=== PATIENT | female | born 1945 | race Caucasian/White ===

== ENCOUNTER → 2018-02-08 | Outpatient (CLI) | payer MEDICARE ==
[~2018-02-08] MED LIST: ACET500 PO; ALBU90OI61 INH; AMLO10 PO; AMLO5 PO; CEPH500 PO; CHOL10002 PO; CYCL10 PO; Cyclobenzaprine5 MG PO; DICL75ER PO; DIVA250EC PO; DOCU100 PO; ESTR1 PO; ESTR2 PO; FISH1000 PO; GUAI600T33 PO; LAMO100 PO; LORA1 PO; LORA2 PO; METO25 PO; METO25ER PO; MINO100 PO; MULVITMIND PO; Mobic7.5 MG PO; NAPR500 PO; Naproxen250 MG PO; Norco 5-325 Ta1 EACH PO; OLAN10 PO; OLAN20 MM; OLAN20 PO; OLAN5 PO; OLAN5A PO; OMEP20ER PO; OMEPRAZOLE MAGN20 MG PO; OXYB5 PO; OXYC5 PO; Prilosec20 MG PO; QUET25 PO; RXCYCL10 PO; RXLORA1 PO; VITAMIN B122500 MCG PO; ZOLP10 PO
[2018-02-08 13:59] LABS: Source, Urine Clean Catch
[2018-02-08 15:11] LABS: Bilirubin, Urine Neg (Neg); Blood, Urine 2+ (Neg); Glucose Qualitative, Urine Neg (Neg); Ketones, Urine Neg (Neg); Leukocyte Esterase, Urine 3+ (Neg); Nitrite, Urine Neg (Neg); Protein, Urine Neg (Neg); Specific Gravity, Urine 1.005 (1.003-1.022); Urobilinogen, Urine NORM (Normal)
[2018-02-08 15:27] LABS: Appearance, Urine Hazy (Clear); Color, Urine Pale Yellow (P-Yellow)
[2018-02-08 15:28] LABS: White Blood Cells, Urine TNTC /hpf (0-5)
[2018-02-08 15:29] LABS: Bacteria Few /hpf; Squamous Epithelial Cells Few /hpf (Few); Transitional Epithelial Cells Few /hpf (0-Rare)
== END | disposition home or self-care (01) ==
LOC: LAB 13:58 → LAB SHORT 13:58 → LAB FUT 02-08 11:25 → EDSTATUS 02-08 11:25
PROVIDERS: Internal Medicine
DX: R30.0 Dysuria (principal)
CPT/HCPCS: 81001; 87077; 87086; 87186

== ENCOUNTER 2018-03-30 20:12 | Emergency (ER) | payer MEDICARE ==
[~2018-03-30] VITALS: Ht 170.2 cm; Wt 87.5 kg
[2018-03-30 20:41] LABS: BASOPHILS PERCENT AUTO 0 % (0-2); EOSINOPHILS ABSOLUTE AUTO 0.01 K/mm3 (0.00-0.68); EOSINOPHILS PERCENT AUTO 0 % (0-6); Hematocrit 39.2 % (33.0-51.0); Hemoglobin 14.3 g/dL (11.5-16.0); IMMATURE GRAN ABSOLUTE AUTO 0.02 K/mm3 (0.00-0.10); IMMATURE GRAN PERCENT AUTO 0 % (0-1); LYMPHOCYTES ABSOLUTE AUTO 1.71 K/mm3 (0.84-5.20); LYMPHOCYTES PERCENT AUTO 19 % (21-46); MONOCYTES ABSOLUTE AUTO 0.59 K/mm3 (0.16-1.47); MONOCYTES PERCENT AUTO 7 % (4-13); Mean Corpuscular HGB 32.7 pg (26.0-34.0); Mean Corpuscular HGB Conc 36.5 g/dL (31.5-36.5); Mean Corpuscular Volume 90 fL (80-100); Mean Platelet Volume 9.1 fL (9.1-12.4); NEUTROPHILS ABSOLUTE AUTO 6.48 K/mm3 (1.96-9.15); NEUTROPHILS PERCENT AUTO 74 % (41-73); Platelet Count 293 K/mm3 (150-400); RDW Coefficient Variation 11.7 % (11.7-14.2); RDW Standard Deviation 38.2 fL (35.1-46.3); Red Blood Cell Count 4.37 M/mm3 (3.80-5.20); White Blood Cell Count 8.81 K/mm3 (4.00-11.30)
[2018-03-30 20:58] LABS: Alanine Aminotransfer (ALT/SGP 25 U/L (12-78); Albumin, Blood 4.2 g/dL (3.4-5.0); Alk Phos 71 U/L (50-136); Anion Gap 11 mmol/L (6-16); Aspartate Aminotrans (AST/SGOT 17 U/L (12-37); Bilirubin, Total 0.5 mg/dL (0.1-1.0); Blood Urea Nitrogen 2 mg/dL (8-24); Bun/Creatinine Ratio 4.1 (12.0-20.0); CO2, Blood 24 mmol/L (21-32); Calcium, Blood 9.2 mg/dL (8.5-10.1); Chloride, Blood 99 mmol/L (98-108); Creatinine, Blood 0.48 mg/dL (0.40-1.00); Globulin, Blood 4.2 g/dL (2.2-4.0); Glomerular Filtration Rate >60 (60-); Glucose, Blood 108 mg/dL (70-99); Potassium, Blood 3.6 mmol/L (3.5-5.5); Sodium, Blood 134 mmol/L (136-145); Total Protein, Blood 8.4 g/dL (6.4-8.2)
[2018-03-30 22:09] LABS: Source, Urine Clean Catch
[2018-03-30 22:12] LABS: Bilirubin, Urine Neg (Neg); Blood, Urine 1+ (Neg); Glucose Qualitative, Urine Neg (Neg); Ketones, Urine Neg (Neg); Leukocyte Esterase, Urine 3+ (Neg); Nitrite, Urine Neg (Neg); Protein, Urine Neg (Neg); Specific Gravity, Urine 1.005 (1.003-1.022); Urobilinogen, Urine NORM (Normal)
[2018-03-30 22:14] LABS: Appearance, Urine Clear (Clear); Color, Urine Yellow (P-Yellow)
[2018-03-30 22:24] LABS: Bacteria Few /hpf; Red Blood Cells, Urine Rare /hpf (0-2); Squamous Epithelial Cells Few /hpf (Few); White Blood Cells, Urine 50-100 /hpf (0-5)
[2018-03-30] MEDS ORDERED: CEPH500 PO (22:45)
== END 2018-03-31 00:01 | disposition home or self-care (01) ==
LOC: ER 20:12
PROVIDERS: Physician Assistant
DX: N39.0 Urinary tract infection, site not specified (principal); Z88.8 Allergy status to other drugs, medicaments and biological substances; Z79.899 Other long term (current) drug therapy; F31.9 Bipolar disorder, unspecified; I10 Essential (primary) hypertension; Z87.891 Personal history of nicotine dependence
CPT/HCPCS: 80053; 81001; 83690; 85025; 87086; 96361; 96374; 99283; J0696; J7030

== ENCOUNTER → 2018-04-07 | Outpatient (CLI) | payer MEDICARE ==
[2018-04-07 14:44] LABS: Source, Urine Clean Catch
[2018-04-07 15:26] LABS: Bilirubin, Urine Neg (Neg); Blood, Urine 1+ (Neg); Glucose Qualitative, Urine Neg (Neg); Ketones, Urine Neg (Neg); Leukocyte Esterase, Urine Neg (Neg); Nitrite, Urine Neg (Neg); Protein, Urine Neg (Neg); Specific Gravity, Urine 1.005 (1.003-1.022); Urobilinogen, Urine NORM (Normal)
[2018-04-07 15:45] LABS: Appearance, Urine Clear (Clear); Color, Urine Yellow (P-Yellow)
[2018-04-07 15:46] LABS: Bacteria Rare /hpf; Red Blood Cells, Urine 0-2 /hpf (0-2); Squamous Epithelial Cells Mod /hpf (Few); White Blood Cells, Urine 0-2 /hpf (0-5)
== END | disposition home or self-care (01) ==
LOC: LAB SHORT 14:40 → LAB 14:40
PROVIDERS: Internal Medicine
DX: R30.0 Dysuria (principal)
CPT/HCPCS: 81001

== ENCOUNTER 2018-05-17 06:28 | Day surgery (SDC) | payer MEDICARE ==
[~2018-05-17] VITALS: Ht 170.2 cm; Wt 87.3 kg
== END 2018-05-17 09:25 | disposition home or self-care (01) ==
LOC: ORSCSDS 06:28
PROVIDERS: Surgery
PROC: 0DJD8ZZ Inspection of Lower Intestinal Tract, Via Natural or Artificial Opening Endoscopic (ICD-10-PCS; principal; 2018-05-17 08:00)
DX: Z12.11 Encounter for screening for malignant neoplasm of colon (principal); I10 Essential (primary) hypertension; G47.33 Obstructive sleep apnea (adult) (pediatric); J45.909 Unspecified asthma, uncomplicated; K21.9 Gastro-esophageal reflux disease without esophagitis; Z79.899 Other long term (current) drug therapy; F17.210 Nicotine dependence, cigarettes, uncomplicated
CPT/HCPCS: J0330; J1980; J2250; J2405; J7120

== ENCOUNTER 2018-06-07 06:42 | Emergency (ER) | payer MEDICARE ==
[~2018-06-07] VITALS: Ht 170.2 cm; Wt 88.5 kg
[2018-06-07] MEDS ORDERED: ZYPREXA (06:53)
[2018-06-07] MEDS ORDERED: NORVASC (06:53)
[2018-06-07] MEDS ORDERED: DEPAKOTE (06:53)
[2018-06-07] MEDS ORDERED: Omeprazole20 M1 (06:54)
[2018-06-07] MEDS ORDERED: METOPROLOL (06:54)
[2018-06-07] MEDS ORDERED: LORAZEPAM (06:54)
[2018-06-07] MEDS ORDERED: OXYB5 PO (06:55)
[2018-06-07] MEDS ORDERED: MELO7.5 (06:56)
[2018-06-07 07:11] LABS: BASOPHILS PERCENT AUTO 0 % (0-2); EOSINOPHILS ABSOLUTE AUTO 0.02 K/mm3 (0.00-0.68); EOSINOPHILS PERCENT AUTO 0 % (0-6); Hematocrit 33.8 % (33.0-51.0); Hemoglobin 12.1 g/dL (11.5-16.0); IMMATURE GRAN ABSOLUTE AUTO 0.01 K/mm3 (0.00-0.10); IMMATURE GRAN PERCENT AUTO 0 % (0-1); LYMPHOCYTES ABSOLUTE AUTO 1.52 K/mm3 (0.84-5.20); LYMPHOCYTES PERCENT AUTO 25 % (21-46); MONOCYTES ABSOLUTE AUTO 0.59 K/mm3 (0.16-1.47); MONOCYTES PERCENT AUTO 10 % (4-13); Mean Corpuscular HGB 33.1 pg (26.0-34.0); Mean Corpuscular HGB Conc 35.8 g/dL (31.5-36.5); Mean Corpuscular Volume 92 fL (80-100); Mean Platelet Volume 8.6 fL (9.1-12.4); NEUTROPHILS ABSOLUTE AUTO 4.03 K/mm3 (1.96-9.15); NEUTROPHILS PERCENT AUTO 65 % (41-73); Platelet Count 256 K/mm3 (150-400); RDW Coefficient Variation 11.8 % (11.7-14.2); RDW Standard Deviation 39.9 fL (35.1-46.3); Red Blood Cell Count 3.66 M/mm3 (3.80-5.20); White Blood Cell Count 6.17 K/mm3 (4.00-11.30)
[2018-06-07 07:19] LABS: Alanine Aminotransfer (ALT/SGP 23 U/L (12-78); Albumin, Blood 3.2 g/dL (3.4-5.0); Albumin/Globulin Ratio 0.8 (0.8-1.8); Alk Phos 68 U/L (50-136); Anion Gap 10 mmol/L (6-16); Aspartate Aminotrans (AST/SGOT 33 U/L (12-37); Bilirubin, Total 0.8 mg/dL (0.1-1.0); Blood Urea Nitrogen 6 mg/dL (8-24); Bun/Creatinine Ratio 11.4 (12.0-20.0); CO2, Blood 24 mmol/L (21-32); Calcium, Blood 8.4 mg/dL (8.5-10.1); Chloride, Blood 93 mmol/L (98-108); Creatinine, Blood 0.53 mg/dL (0.40-1.00); Globulin, Blood 3.9 g/dL (2.2-4.0); Glomerular Filtration Rate >60 (60-); Glucose, Blood 124 mg/dL (70-99); Potassium, Blood 3.5 mmol/L (3.5-5.5); Sodium, Blood 127 mmol/L (136-145); Total Protein, Blood 7.1 g/dL (6.4-8.2); Troponin I <0.015 ng/mL (0.000-0.040)
[2018-06-07 08:30] LABS: Source, Urine Clean Catch
[2018-06-07 08:54] LABS: Bilirubin, Urine Neg (Neg); Blood, Urine 1+ (Neg); Glucose Qualitative, Urine Neg (Neg); Ketones, Urine 1+ (Neg); Leukocyte Esterase, Urine 2+ (Neg); Nitrite, Urine Neg (Neg); Protein, Urine 1+ (Neg); Urobilinogen, Urine NORM (Normal); pH, Urine 6.5 (5.0-8.0)
[2018-06-07 09:28] LABS: Appearance, Urine Hazy (Clear); Color, Urine Yellow (P-Yellow)
[2018-06-07 09:29] LABS: Red Blood Cells, Urine 0-2 /hpf (0-2); Squamous Epithelial Cells Few /hpf (Few)
[2018-06-07 09:30] LABS: Bacteria Few /hpf; Mucus Mod (0-Heavy)
[2018-06-07 09:35] LABS: U Amphetamine Screen Not Detected; U Barbituate Screen Not Detected; U Benzodiazapine Screen DETECTED; U Buprenorphine Screen Not Detected; U Cannabinoids Screen Not Detected; U Cocaine Screen Not Detected; U Methadone Screen Not Detected; U Methamphetamine Screen Not Detected; U Opiates Screen Not Detected; U Oxycodone Screen Not Detected; U Phencyclidine Screen Not Detected
[2018-06-07 09:36] LABS: U Propoxyphene Screen Not Detected
[2018-06-07] MEDS ORDERED: Macrobid 100 M100 MG PO (09:46)
== END 2018-06-07 11:03 | disposition home or self-care (01) ==
LOC: ER 06:42
PROVIDERS: Emergency Medicine
DX: R55 Syncope and collapse (principal); N39.0 Urinary tract infection, site not specified; E87.1 Hypo-osmolality and hyponatremia; R40.0 Somnolence; F31.9 Bipolar disorder, unspecified; I10 Essential (primary) hypertension; Z88.8 Allergy status to other drugs, medicaments and biological substances; Z79.899 Other long term (current) drug therapy; Z87.891 Personal history of nicotine dependence; W19.XXXA Unspecified fall, initial encounter; Y92.000 Kitchen of unspecified non-institutional (private) residence as the place of occurrence of the external cause
CPT/HCPCS: 70450; 71046; 80053; 81001; 84484; 85025; 93005; 93010; 99285-25; P9612

== ENCOUNTER 2018-10-22 18:10 | Observation (INO) | payer MEDICARE ==
[~2018-10-22] VITALS: Ht 170.2 cm; Wt 95.2 kg
[~2018-10-22 18:10] MED LIST changes: +DEPAKOTE; +LORAZEPAM; +MELO7.5; +METOPROLOL; +Macrobid 100 M100 MG PO; +NORVASC; +Omeprazole20 M1; +ZYPREXA
[2018-10-22 19:20] LABS: BASOPHILS ABSOLUTE AUTO 0.01 K/mm3 (0.00-0.23); BASOPHILS PERCENT AUTO 0 % (0-2); EOSINOPHILS ABSOLUTE AUTO 0.01 K/mm3 (0.00-0.68); EOSINOPHILS PERCENT AUTO 0 % (0-6); Hematocrit 35.9 % (33.0-51.0); IMMATURE GRAN ABSOLUTE AUTO 0.01 K/mm3 (0.00-0.10); IMMATURE GRAN PERCENT AUTO 0 % (0-1); LYMPHOCYTES ABSOLUTE AUTO 1.67 K/mm3 (0.84-5.20); LYMPHOCYTES PERCENT AUTO 22 % (21-46); MONOCYTES ABSOLUTE AUTO 0.47 K/mm3 (0.16-1.47); MONOCYTES PERCENT AUTO 6 % (4-13); Mean Corpuscular HGB 33.5 pg (26.0-34.0); Mean Corpuscular HGB Conc 36.2 g/dL (31.5-36.5); Mean Corpuscular Volume 93 fL (80-100); Mean Platelet Volume 8.7 fL (9.1-12.4); NEUTROPHILS ABSOLUTE AUTO 5.55 K/mm3 (1.96-9.15); NEUTROPHILS PERCENT AUTO 72 % (41-73); Platelet Count 243 K/mm3 (150-400); RDW Coefficient Variation 11.5 % (11.7-14.2); Red Blood Cell Count 3.88 M/mm3 (3.80-5.20); White Blood Cell Count 7.72 K/mm3 (4.00-11.30)
[2018-10-22 19:36] LABS: Alanine Aminotransfer (ALT/SGP 26 U/L (12-78); Albumin, Blood 3.9 g/dL (3.4-5.0); Albumin/Globulin Ratio 0.9 (0.8-1.8); Alk Phos 71 U/L (50-136); Anion Gap 9 mmol/L (6-16); Aspartate Aminotrans (AST/SGOT 17 U/L (12-37); Blood Urea Nitrogen 9 mg/dL (8-24); Bun/Creatinine Ratio 15.7 (12.0-20.0); CO2, Blood 25 mmol/L (21-32); Calcium, Blood 8.9 mg/dL (8.5-10.1); Chloride, Blood 93 mmol/L (98-108); Creatinine, Blood 0.57 mg/dL (0.40-1.00); Globulin, Blood 4.2 g/dL (2.2-4.0); Glomerular Filtration Rate >60 (60-); Glucose, Blood 93 mg/dL (70-99); Potassium, Blood 3.4 mmol/L (3.5-5.5); Sodium, Blood 127 mmol/L (136-145); Total Protein, Blood 8.1 g/dL (6.4-8.2)
[2018-10-22 20:53] LABS: Source, Urine Clean Catch
[2018-10-22 20:59] LABS: Appearance, Urine Clear (Clear); Bilirubin, Urine Neg (Neg); Blood, Urine Neg (Neg); Color, Urine Yellow (P-Yellow); Glucose Qualitative, Urine Neg (Neg); Ketones, Urine 1+ (Neg); Leukocyte Esterase, Urine Neg (Neg); Nitrite, Urine Neg (Neg); Protein, Urine Neg (Neg); Specific Gravity, Urine 1.005 (1.003-1.022); Urobilinogen, Urine NORM (Normal); pH, Urine 6.5 (5.0-8.0)
[2018-10-22 21:04] LABS: Troponin I <0.015 ng/mL (0.000-0.040); Valproic Acid 54.1 ug/mL (50.0-100.0)
[2018-10-22] MEDS ORDERED: ALBU90OI INH (21:56)
== END 2018-10-23 15:10 | disposition home or self-care (01) ==
LOC: ER 18:10 → EOR 21:53
PROVIDERS: Emergency Medicine; ADMIT Emergency Medicine
DX: F31.9 Bipolar disorder, unspecified (principal); F23 Brief psychotic disorder; I10 Essential (primary) hypertension; M54.9 Dorsalgia, unspecified; G89.29 Other chronic pain; Z88.8 Allergy status to other drugs, medicaments and biological substances; Z79.899 Other long term (current) drug therapy; Z87.891 Personal history of nicotine dependence; Z91.14 Patient's other noncompliance with medication regimen
CPT/HCPCS: 36415; 70450; 71045; 80053; 80164; 81003; 84484; 85025; 93005; 93010; 99285-25; G0378; P9612; Q3014

== ENCOUNTER → 2018-12-14 | Outpatient (CLI) | payer MEDICARE ==
[~2018-12-14] MED LIST changes: +ALBU90OI INH
[2018-12-14 11:02] LABS: Source, Urine Clean Catch
[2018-12-14 14:10] LABS: Bilirubin, Urine Neg (Neg); Blood, Urine Neg (Neg); Glucose Qualitative, Urine Neg (Neg); Ketones, Urine Neg (Neg); Leukocyte Esterase, Urine Neg (Neg); Nitrite, Urine Neg (Neg); Protein, Urine Neg (Neg); Specific Gravity, Urine 1.005 (1.003-1.022); Urobilinogen, Urine NORM (Normal)
[2018-12-14 14:25] LABS: Appearance, Urine Clear (Clear); Color, Urine Yellow (P-Yellow)
== END | disposition home or self-care (01) ==
LOC: LAB 10:59 → LAB SHORT 10:59 → LAB FUT 12-13 15:35
PROVIDERS: Internal Medicine
DX: N39.0 Urinary tract infection, site not specified (principal)
CPT/HCPCS: 81003

== ENCOUNTER → 2019-02-21 | Outpatient (CLI) | payer MEDICARE ==
[2019-02-21 14:31] LABS: Source, Urine Clean Catch
[2019-02-21 18:15] LABS: Appearance, Urine Clear (Clear); Bilirubin, Urine Neg (Neg); Blood, Urine Neg (Neg); Glucose Qualitative, Urine Neg (Neg); Ketones, Urine Neg (Neg); Leukocyte Esterase, Urine Neg (Neg); Nitrite, Urine Neg (Neg); Protein, Urine Neg (Neg); Urobilinogen, Urine NORM (Normal)
[2019-02-21 18:27] LABS: Specific Gravity, Urine 1.005 (1.003-1.022)
[2019-02-21 18:28] LABS: Color, Urine Pale Yellow (P-Yellow)
== END | disposition home or self-care (01) ==
LOC: LAB SHORT 14:29 → LAB SRC 14:29 → EDSTATUS 02-21 16:00 → LAB FUT 02-21 16:00
PROVIDERS: Internal Medicine
DX: N39.0 Urinary tract infection, site not specified (principal)
CPT/HCPCS: 81003

== ENCOUNTER → 2019-04-04 | Outpatient (CLI) | payer MEDICARE ==
[2019-04-04 12:50] LABS: Source, Urine Clean Catch
[2019-04-04 15:17] LABS: Bilirubin, Urine Neg (Neg); Blood, Urine 3+ (Neg); Glucose Qualitative, Urine Neg (Neg); Ketones, Urine Neg (Neg); Leukocyte Esterase, Urine 3+ (Neg); Nitrite, Urine Pos (Neg); Protein, Urine 2+ (Neg); Specific Gravity, Urine 1.005 (1.003-1.022); Urobilinogen, Urine NORM (Normal)
[2019-04-04 15:42] LABS: Appearance, Urine Hazy (Clear); Color, Urine Yellow (P-Yellow)
[2019-04-04 15:43] LABS: White Blood Cells, Urine TNTC /hpf (0-5)
[2019-04-04 15:44] LABS: Bacteria Many /hpf; Red Blood Cells, Urine 25-50 /hpf (0-2); Squamous Epithelial Cells Few /hpf (Few)
== END | disposition home or self-care (01) ==
LOC: LAB SRC 12:49 → LAB SHORT 12:49 → LAB FUT 04-02 15:50
PROVIDERS: Internal Medicine
DX: N39.0 Urinary tract infection, site not specified (principal); R32 Unspecified urinary incontinence
CPT/HCPCS: 81001; 87077; 87086; 87186

== ENCOUNTER → 2019-04-18 | Outpatient (CLI) | payer MEDICARE ==
[2019-04-18 13:04] LABS: Source, Urine Clean Catch
[2019-04-18 13:31] LABS: Appearance, Urine Hazy (Clear); Bilirubin, Urine Neg (Neg); Blood, Urine 2+ (Neg); Color, Urine Yellow (P-Yellow); Glucose Qualitative, Urine Neg (Neg); Ketones, Urine Neg (Neg); Leukocyte Esterase, Urine 3+ (Neg); Nitrite, Urine Neg (Neg); Protein, Urine 1+ (Neg); Urobilinogen, Urine NORM (Normal); pH, Urine 6.5 (5.0-8.0)
[2019-04-18 13:53] LABS: White Blood Cells, Urine TNTC /hpf (0-5)
[2019-04-18 13:54] LABS: Bacteria Many /hpf; Squamous Epithelial Cells Few /hpf (Few)
== END | disposition home or self-care (01) ==
LOC: LAB SHORT 13:01 → LAB 13:01 → LAB FUT 04-17 12:00
PROVIDERS: Internal Medicine
DX: N39.0 Urinary tract infection, site not specified (principal)
CPT/HCPCS: 81001; 87077; 87086; 87186

== ENCOUNTER → 2019-05-25 | Outpatient (CLI) | payer MEDICARE ==
[2019-05-25 10:15] LABS: Source, Urine Clean Catch
[2019-05-25 12:41] LABS: Bilirubin, Urine Neg (Neg); Blood, Urine 3+ (Neg); Glucose Qualitative, Urine Neg (Neg); Ketones, Urine Neg (Neg); Leukocyte Esterase, Urine 3+ (Neg); Nitrite, Urine Pos (Neg); Protein, Urine Neg (Neg); Specific Gravity, Urine 1.005 (1.003-1.022); Urobilinogen, Urine NORM (Normal)
[2019-05-25 13:02] LABS: Appearance, Urine Cloudy (Clear); Color, Urine Yellow (P-Yellow)
[2019-05-25 13:16] LABS: Red Blood Cells, Urine 50-100 /hpf (0-2); White Blood Cells, Urine TNTC /hpf (0-5)
[2019-05-25 13:17] LABS: Bacteria Many /hpf; Squamous Epithelial Cells Few /hpf (Few)
== END | disposition home or self-care (01) ==
LOC: LAB 10:15 → LAB SHORT 10:15
PROVIDERS: Internal Medicine
DX: N39.0 Urinary tract infection, site not specified (principal)
CPT/HCPCS: 81001; 87077; 87086; 87186

== ENCOUNTER → 2019-08-11 | Outpatient (CLI) | payer MEDICARE ==
[2019-08-11 14:29] LABS: Source, Urine Clean Catch
[2019-08-11 14:51] LABS: Bilirubin, Urine Neg (Neg); Blood, Urine 1+ (Neg); Glucose Qualitative, Urine Neg (Neg); Ketones, Urine Neg (Neg); Leukocyte Esterase, Urine Neg (Neg); Nitrite, Urine Neg (Neg); Protein, Urine Neg (Neg); Specific Gravity, Urine 1.005 (1.003-1.022); Urobilinogen, Urine NORM (Normal)
[2019-08-11 15:37] LABS: Color, Urine Yellow (P-Yellow)
[2019-08-11 15:38] LABS: Appearance, Urine Clear (Clear)
[2019-08-11 15:39] LABS: Bacteria Rare /hpf; Red Blood Cells, Urine Not Seen /hpf (0-2); Squamous Epithelial Cells Rare /hpf (Few); White Blood Cells, Urine Not Seen /hpf (0-5)
== END | disposition home or self-care (01) ==
LOC: LAB SHORT 14:27 → LAB 14:27 → LAB FUT 08-11 10:50
PROVIDERS: Internal Medicine
DX: N39.0 Urinary tract infection, site not specified (principal)
CPT/HCPCS: 81001

== ENCOUNTER 2019-08-12 17:09 | Emergency (ER) | payer MEDICARE ==
[~2019-08-12] VITALS: Ht 170.2 cm; Wt 82.5 kg
== END 2019-08-12 18:31 | disposition home or self-care (01) ==
LOC: ER 17:09
DX: F31.9 Bipolar disorder, unspecified (principal); T38.0X5A Adverse effect of glucocorticoids and synthetic analogues, initial encounter; Z79.899 Other long term (current) drug therapy; K21.9 Gastro-esophageal reflux disease without esophagitis; I10 Essential (primary) hypertension
CPT/HCPCS: 99283

== ENCOUNTER 2019-10-05 11:00 | Emergency (ER) | payer MEDICARE ==
[~2019-10-05] VITALS: Ht 170.2 cm; Wt 82.5 kg
[2019-10-05 11:30] LABS: Source, Urine Clean Catch
[2019-10-05 11:32] LABS: Appearance, Urine Clear (Clear); Bilirubin, Urine Neg (Neg); Blood, Urine Neg (Neg); Color, Urine Yellow (P-Yellow); Glucose Qualitative, Urine Neg (Neg); Ketones, Urine Neg (Neg); Leukocyte Esterase, Urine Neg (Neg); Nitrite, Urine Neg (Neg); Protein, Urine Neg (Neg); Urobilinogen, Urine NORM (Normal)
[2019-10-05 11:44] LABS: BASOPHILS ABSOLUTE AUTO 0.01 K/mm3 (0.00-0.23); BASOPHILS PERCENT AUTO 0 % (0-2); EOSINOPHILS PERCENT AUTO 0 % (0-6); Hematocrit 39.4 % (33.0-51.0); Hemoglobin 12.8 g/dL (11.5-16.0); IMMATURE GRAN ABSOLUTE AUTO 0.03 K/mm3 (0.00-0.10); IMMATURE GRAN PERCENT AUTO 0 % (0-1); LYMPHOCYTES ABSOLUTE AUTO 1.35 K/mm3 (0.84-5.20); LYMPHOCYTES PERCENT AUTO 16 % (21-46); MONOCYTES ABSOLUTE AUTO 0.54 K/mm3 (0.16-1.47); MONOCYTES PERCENT AUTO 7 % (4-13); Mean Corpuscular HGB 32.2 pg (26.0-34.0); Mean Corpuscular HGB Conc 32.5 g/dL (31.5-36.5); Mean Corpuscular Volume 99 fL (80-100); Mean Platelet Volume 8.8 fL (9.1-12.4); NEUTROPHILS ABSOLUTE AUTO 6.37 K/mm3 (1.96-9.15); NEUTROPHILS PERCENT AUTO 77 % (41-73); Platelet Count 273 K/mm3 (150-400); RDW Coefficient Variation 11.8 % (11.7-14.2); RDW Standard Deviation 43.3 fL (35.1-46.3); Red Blood Cell Count 3.98 M/mm3 (3.80-5.20)
[2019-10-05 12:00] LABS: Alanine Aminotransfer (ALT/SGP 24 U/L (12-78); Albumin, Blood 3.6 g/dL (3.4-5.0); Albumin/Globulin Ratio 0.8 (0.8-1.8); Alk Phos 77 U/L (50-136); Anion Gap 8 mmol/L (6-16); Aspartate Aminotrans (AST/SGOT 17 U/L (12-37); Bilirubin, Total 0.3 mg/dL (0.1-1.0); Blood Urea Nitrogen 11 mg/dL (8-24); Bun/Creatinine Ratio 22.8 (12.0-20.0); CO2, Blood 23 mmol/L (21-32); Chloride, Blood 97 mmol/L (98-108); Creatinine, Blood 0.48 mg/dL (0.40-1.00); Globulin, Blood 4.5 g/dL (2.2-4.0); Glomerular Filtration Rate >60 (60-); Glucose, Blood 117 mg/dL (70-99); Potassium, Blood 4.2 mmol/L (3.5-5.5); Sodium, Blood 128 mmol/L (136-145); Total Protein, Blood 8.1 g/dL (6.4-8.2)
[2019-10-05] MEDS ORDERED: Magnesium Citr296 ML PO (14:25)
== END 2019-10-05 14:40 | disposition home or self-care (01) ==
LOC: ER 11:00
PROVIDERS: Physician Assistant
DX: R10.30 Lower abdominal pain, unspecified (principal); R10.10 Upper abdominal pain, unspecified; M54.9 Dorsalgia, unspecified; I10 Essential (primary) hypertension; K21.9 Gastro-esophageal reflux disease without esophagitis; Z87.891 Personal history of nicotine dependence
CPT/HCPCS: 36415; 51798; 74176; 80053; 81003; 85025; 99284-25

== ENCOUNTER → 2019-10-25 | Outpatient (CLI) | payer MEDICARE ==
[~2019-10-25] MED LIST changes: +Magnesium Citr296 ML PO
[2019-10-25 11:49] LABS: Source, Urine Clean Catch
[2019-10-25 12:40] LABS: Appearance, Urine Clear (Clear); Bilirubin, Urine Neg (Neg); Blood, Urine 1+ (Neg); Color, Urine Yellow (P-Yellow); Glucose Qualitative, Urine Neg (Neg); Ketones, Urine Neg (Neg); Leukocyte Esterase, Urine Neg (Neg); Nitrite, Urine Neg (Neg); Protein, Urine Neg (Neg); Specific Gravity, Urine 1.005 (1.003-1.022); Urobilinogen, Urine NORM (Normal)
[2019-10-25 12:58] LABS: Bacteria Not Seen /hpf; Red Blood Cells, Urine 0-2 /hpf (0-2); Squamous Epithelial Cells Few /hpf (Few); White Blood Cells, Urine Not Seen /hpf (0-5)
== END | disposition home or self-care (01) ==
LOC: LAB SHORT 11:49 → LAB SRC 11:49 → EDSTATUS 10-25 11:25 → LAB FUT 10-25 11:25
PROVIDERS: Internal Medicine
DX: N39.0 Urinary tract infection, site not specified (principal)
CPT/HCPCS: 81001

== ENCOUNTER 2020-02-12 22:02 | Emergency (ER) | payer MEDICARE ==
[~2020-02-12] VITALS: Ht 167.6 cm; Wt 89.8 kg
[~2020-02-12 22:02] MED LIST changes: +CELE100 PO; +Keflex250 MG PO
[2020-02-12 22:26] LABS: Source, Urine Clean Catch
[2020-02-12 22:31] LABS: Bilirubin, Urine Neg (Neg); Blood, Urine Neg (Neg); Glucose Qualitative, Urine Neg (Neg); Ketones, Urine Neg (Neg); Leukocyte Esterase, Urine Neg (Neg); Nitrite, Urine Neg (Neg); Protein, Urine Neg (Neg); Urobilinogen, Urine NORM (Normal)
[2020-02-12 22:33] LABS: Appearance, Urine Clear (Clear); Color, Urine Yellow (P-Yellow)
[2020-02-12 22:51] LABS: BASOPHILS ABSOLUTE AUTO 0.01 K/mm3 (0.00-0.23); BASOPHILS PERCENT AUTO 0 % (0-2); EOSINOPHILS ABSOLUTE AUTO 0.03 K/mm3 (0.00-0.68); EOSINOPHILS PERCENT AUTO 1 % (0-6); Hematocrit 38.2 % (33.0-51.0); Hemoglobin 13.4 g/dL (11.5-16.0); IMMATURE GRAN ABSOLUTE AUTO 0.02 K/mm3 (0.00-0.10); IMMATURE GRAN PERCENT AUTO 0 % (0-1); LYMPHOCYTES ABSOLUTE AUTO 1.69 K/mm3 (0.84-5.20); LYMPHOCYTES PERCENT AUTO 29 % (21-46); MONOCYTES ABSOLUTE AUTO 0.45 K/mm3 (0.16-1.47); MONOCYTES PERCENT AUTO 8 % (4-13); Mean Corpuscular HGB 32.2 pg (26.0-34.0); Mean Corpuscular HGB Conc 35.1 g/dL (31.5-36.5); Mean Corpuscular Volume 92 fL (80-100); Mean Platelet Volume 8.8 fL (9.1-12.4); NEUTROPHILS ABSOLUTE AUTO 3.72 K/mm3 (1.96-9.15); NEUTROPHILS PERCENT AUTO 63 % (41-73); Platelet Count 267 K/mm3 (150-400); RDW Coefficient Variation 11.7 % (11.7-14.2); RDW Standard Deviation 39.6 fL (35.1-46.3); Red Blood Cell Count 4.16 M/mm3 (3.80-5.20); White Blood Cell Count 5.92 K/mm3 (4.00-11.30)
[2020-02-12 23:06] LABS: Alanine Aminotransfer (ALT/SGP 32 U/L (12-78); Albumin, Blood 4.1 g/dL (3.4-5.0); Alk Phos 78 U/L (50-136); Anion Gap 7 mmol/L (6-16); Aspartate Aminotrans (AST/SGOT 25 U/L (12-37); Bilirubin, Total 0.4 mg/dL (0.1-1.0); Blood Urea Nitrogen 10 mg/dL (8-24); CO2, Blood 25 mmol/L (21-32); Calcium, Blood 9.2 mg/dL (8.5-10.1); Chloride, Blood 95 mmol/L (98-108); Creatinine, Blood 0.45 mg/dL (0.40-1.00); Globulin, Blood 4.3 g/dL (2.2-4.0); Glomerular Filtration Rate >60 (60-); Glucose, Blood 106 mg/dL (70-99); Potassium, Blood 4.1 mmol/L (3.5-5.5); Sodium, Blood 127 mmol/L (136-145); Total Protein, Blood 8.4 g/dL (6.4-8.2)
== END 2020-02-13 00:35 | disposition home or self-care (01) ==
LOC: ER 22:02
PROVIDERS: Emergency Medicine
DX: R42 Dizziness and giddiness (principal); R53.1 Weakness; F31.9 Bipolar disorder, unspecified; I10 Essential (primary) hypertension; F03.90 Unspecified dementia, unspecified severity, without behavioral disturbance, psychotic disturbance, mood disturbance, and anxiety; Z88.8 Allergy status to other drugs, medicaments and biological substances; Z79.899 Other long term (current) drug therapy
CPT/HCPCS: 36415; 80053; 81003; 85025; 93005; 93010; 96360; 99284-25; J7030

== ENCOUNTER 2020-08-23 11:39 | Emergency (ER) | payer MEDICARE ==
[~2020-08-23] VITALS: Ht 170.2 cm; Wt 86.2 kg
== END 2020-08-23 14:14 | disposition left against medical advice (07) ==
LOC: ER 11:39
DX: Z53.21 Procedure and treatment not carried out due to patient leaving prior to being seen by health care provider (principal)

== ENCOUNTER 2020-09-29 16:15 | Emergency (ER) | payer MEDICARE ==
[~2020-09-29] VITALS: Ht 165.1 cm; Wt 86.2 kg
[2020-09-29] MEDS ORDERED: VITAMIN B125000 MC1 PO (16:39)
[2020-09-29] MEDS ORDERED: Vitamin D2000 UNIT PO (16:40)
[2020-09-29] MEDS ORDERED: OLAN20 PO (16:40)
[2020-09-29] MEDS ORDERED: MELO7.5 PO (16:40)
[2020-09-29 16:44] LABS: BASOPHILS ABSOLUTE AUTO 0.02 K/mm3 (0.00-0.23); BASOPHILS PERCENT AUTO 0 % (0-2); EOSINOPHILS ABSOLUTE AUTO 0.03 K/mm3 (0.00-0.68); EOSINOPHILS PERCENT AUTO 0 % (0-6); Hematocrit 38.9 % (33.0-51.0); Hemoglobin 13.6 g/dL (11.5-16.0); IMMATURE GRAN ABSOLUTE AUTO 0.02 K/mm3 (0.00-0.10); IMMATURE GRAN PERCENT AUTO 0 % (0-1); LYMPHOCYTES ABSOLUTE AUTO 3.35 K/mm3 (0.84-5.20); LYMPHOCYTES PERCENT AUTO 36 % (21-46); MONOCYTES ABSOLUTE AUTO 0.86 K/mm3 (0.16-1.47); MONOCYTES PERCENT AUTO 9 % (4-13); Mean Corpuscular HGB 32.7 pg (26.0-34.0); Mean Corpuscular Volume 94 fL (80-100); Mean Platelet Volume 9.3 fL (9.1-12.4); NEUTROPHILS PERCENT AUTO 54 % (41-73); Platelet Count 312 K/mm3 (150-400); RDW Coefficient Variation 11.9 % (11.7-14.2); Red Blood Cell Count 4.16 M/mm3 (3.80-5.20); White Blood Cell Count 9.38 K/mm3 (4.00-11.30)
[2020-09-29 17:01] LABS: Alanine Aminotransfer (ALT/SGP 14 U/L (12-78); Albumin, Blood 3.9 g/dL (3.4-5.0); Alk Phos 61 U/L (50-136); Anion Gap 11 mmol/L (6-16); Aspartate Aminotrans (AST/SGOT 11 U/L (12-37); Bilirubin, Total 0.5 mg/dL (0.1-1.0); Blood Urea Nitrogen 13 mg/dL (8-24); Bun/Creatinine Ratio 19.3 (12.0-20.0); CO2, Blood 21 mmol/L (21-32); Calcium, Blood 9.3 mg/dL (8.5-10.1); Chloride, Blood 98 mmol/L (98-108); Creatinine, Blood 0.67 mg/dL (0.40-1.00); Ethanol (Alcohol), Blood, Med <3 mg/dL; Globulin, Blood 3.8 g/dL (2.2-4.0); Glomerular Filtration Rate >60 (60-); Glucose, Blood 133 mg/dL (70-99); Potassium, Blood 3.8 mmol/L (3.5-5.5); Prolactin 162.1 ng/mL (2.74-19.64); Salicylate <1.7 mg/dL (2.8-20.0); Sodium, Blood 130 mmol/L (136-145); Total Protein, Blood 7.7 g/dL (6.4-8.2)
[2020-09-29 17:06] LABS: Acetaminophen, Random <2.0 ug/mL (10.0-30.0)
[2020-09-29 18:06] LABS: Source, Urine Clean Catch
[2020-09-29 18:11] LABS: Appearance, Urine Clear (Clear); Bilirubin, Urine Neg (Neg); Blood, Urine 1+ (Neg); Color, Urine Yellow (P-Yellow); Glucose Qualitative, Urine Neg (Neg); Ketones, Urine 2+ (Neg); Leukocyte Esterase, Urine 2+ (Neg); Nitrite, Urine Neg (Neg); Protein, Urine 2+ (Neg); Specific Gravity, Urine 1.025 (1.003-1.022); Urobilinogen, Urine NORM (Normal)
[2020-09-29 18:18] LABS: Bacteria Mod /hpf; Mucus Light (0-Heavy); Red Blood Cells, Urine 0-2 /hpf (0-2); Squamous Epithelial Cells Mod /hpf (Few)
[2020-09-29 18:30] LABS: U Amphetamine Screen Not Detected; U Barbituate Screen Not Detected; U Benzodiazapine Screen Not Detected; U Buprenorphine Screen Not Detected; U Cannabinoids Screen Not Detected; U Cocaine Screen Not Detected; U Methadone Screen Not Detected; U Methamphetamine Screen Not Detected; U Opiates Screen Not Detected; U Oxycodone Screen Not Detected; U Phencyclidine Screen Not Detected; U Propoxyphene Screen Not Detected
== END 2020-09-29 19:30 | disposition home or self-care (01) ==
LOC: ER 16:15
PROVIDERS: Emergency Medicine
DX: R56.9 Unspecified convulsions (principal); F31.9 Bipolar disorder, unspecified; I10 Essential (primary) hypertension; K21.9 Gastro-esophageal reflux disease without esophagitis; Z87.891 Personal history of nicotine dependence; Z79.899 Other long term (current) drug therapy; Z88.8 Allergy status to other drugs, medicaments and biological substances
CPT/HCPCS: 36415; 70450; 80053; 81001; 84146; 85025; 87086; 93005; 93010; 99285-25; G0480

== ENCOUNTER → 2021-03-12 | Outpatient (CLI) | payer MEDICARE ==
[~2021-03-12] MED LIST changes: +MELO7.5 PO; +VITAMIN B125000 MC1 PO; +Vitamin D2000 UNIT PO
[2021-03-12 09:53] LABS: Source, Urine Clean Catch
[2021-03-12 13:35] LABS: Appearance, Urine Hazy (Clear); Bilirubin, Urine Neg (Neg); Blood, Urine 1+ (Neg); Color, Urine Yellow (P-Yellow); Glucose Qualitative, Urine Neg (Neg); Ketones, Urine Neg (Neg); Leukocyte Esterase, Urine 3+ (Neg); Nitrite, Urine Neg (Neg); Protein, Urine Neg (Neg); Specific Gravity, Urine 1.005 (1.003-1.022); Urobilinogen, Urine NORM (Normal)
[2021-03-12 14:17] LABS: Bacteria Few /hpf; Squamous Epithelial Cells Few /hpf (Few); White Blood Cells, Urine TNTC /hpf (0-5)
== END | disposition home or self-care (01) ==
LOC: LAB SHORT 09:52 → LAB 09:52
PROVIDERS: Internal Medicine
DX: N39.0 Urinary tract infection, site not specified (principal)
CPT/HCPCS: 81001; 87086

== ENCOUNTER 2022-02-01 23:08 | Emergency (ER) | payer MEDICARE ==
[~2022-02-01] VITALS: Ht 170.2 cm; Wt 72.1 kg
[~2022-02-01 23:08] MED LIST changes: +ULTRA-LIGHT RO1 EACH XX
== END 2022-02-02 02:30 | disposition home or self-care (01) ==
LOC: ER 23:08
DX: R04.0 Epistaxis (principal); I10 Essential (primary) hypertension; K21.9 Gastro-esophageal reflux disease without esophagitis; Z87.891 Personal history of nicotine dependence; Z88.8 Allergy status to other drugs, medicaments and biological substances
CPT/HCPCS: 30901; 36415; 99283-25; A9270

== ENCOUNTER 2022-02-04 14:04 | Emergency (ER) | payer MEDICARE ==
[~2022-02-04] VITALS: Ht 170.2 cm; Wt 72.6 kg
== END 2022-02-04 15:55 | disposition home or self-care (01) ==
LOC: ER 14:04
DX: Z46.89 Encounter for fitting and adjustment of other specified devices (principal); I10 Essential (primary) hypertension; K21.9 Gastro-esophageal reflux disease without esophagitis; Z87.891 Personal history of nicotine dependence; Z79.899 Other long term (current) drug therapy; Z88.8 Allergy status to other drugs, medicaments and biological substances
CPT/HCPCS: 99281

== ENCOUNTER 2022-09-20 00:29 | Emergency (ER) | payer MEDICARE ==
[~2022-09-20] VITALS: Ht 170.2 cm; Wt 68.5 kg
[~2022-09-20 00:29] MED LIST changes: +ONDA4ODT SL
== END 2022-09-20 03:01 | disposition home or self-care (01) ==
LOC: ER 00:29
DX: G47.00 Insomnia, unspecified (principal); I10 Essential (primary) hypertension; J44.9 Chronic obstructive pulmonary disease, unspecified; Z88.8 Allergy status to other drugs, medicaments and biological substances; Z79.899 Other long term (current) drug therapy; Z87.891 Personal history of nicotine dependence
CPT/HCPCS: 99283

== ENCOUNTER → 2022-10-01 | Outpatient (CLI) | payer MEDICARE ==
[2022-10-01 14:58] LABS: Source, Urine Clean Catch
[2022-10-01 17:11] LABS: Appearance, Urine Clear (Clear); Bilirubin, Urine Neg (Neg); Blood, Urine 1+ (Neg); Glucose Qualitative, Urine Neg (Neg); Ketones, Urine Neg (Neg); Leukocyte Esterase, Urine Neg (Neg); Nitrite, Urine Neg (Neg); Protein, Urine Neg (Neg); Urobilinogen, Urine NORM (Normal)
[2022-10-01 17:20] LABS: Color, Urine Pale Yellow (P-Yellow)
[2022-10-01 17:21] LABS: Bacteria Few /hpf; Red Blood Cells, Urine 0-2 /hpf (0-2); Squamous Epithelial Cells Rare /hpf (Few); White Blood Cells, Urine 0-2 /hpf (0-5)
== END ==
LOC: LAB SHORT 14:56 → LAB 14:56
PROVIDERS: Internal Medicine
DX: N39.0 Urinary tract infection, site not specified (principal); L98.9 Disorder of the skin and subcutaneous tissue, unspecified
CPT/HCPCS: 81001

== ENCOUNTER 2022-10-24 12:14 | Inpatient (IN) | payer OTHER ==
[~2022-10-24] VITALS: Ht 170.2 cm; Wt 71.5 kg
[~2022-10-24 12:14] MED LIST changes: -Omeprazole20 M1
[2022-10-24 13:03] LABS: BASOPHILS ABSOLUTE AUTO 0.03 K/mm3 (0.00-0.23); BASOPHILS PERCENT AUTO 1 % (0-2); EOSINOPHILS ABSOLUTE AUTO 0.02 K/mm3 (0.00-0.68); EOSINOPHILS PERCENT AUTO 0 % (0-6); IMMATURE GRAN ABSOLUTE AUTO 0.02 K/mm3 (0.00-0.10); IMMATURE GRAN PERCENT AUTO 0 % (0-1); LYMPHOCYTES ABSOLUTE AUTO 0.53 K/mm3 (0.84-5.20); LYMPHOCYTES PERCENT AUTO 8 % (21-46); MONOCYTES ABSOLUTE AUTO 0.48 K/mm3 (0.16-1.47); MONOCYTES PERCENT AUTO 7 % (4-13); Mean Corpuscular HGB 33.1 pg (26.0-34.0); Mean Corpuscular HGB Conc 35.3 g/dL (31.5-36.5); Mean Corpuscular Volume 94 fL (80-100); Mean Platelet Volume 9.2 fL (9.1-12.4); NEUTROPHILS ABSOLUTE AUTO 5.38 K/mm3 (1.96-9.15); NEUTROPHILS PERCENT AUTO 83 % (41-73); Platelet Count 157 K/mm3 (150-400); RDW Standard Deviation 41.6 fL (35.1-46.3); Red Blood Cell Count 3.63 M/mm3 (3.80-5.20); White Blood Cell Count 6.46 K/mm3 (4.00-11.30)
[2022-10-24 13:20] LABS: Albumin/Globulin Ratio 0.9 (0.8-1.8); Bilirubin, Total 0.5 mg/dL (0.1-1.0); Bun/Creatinine Ratio 29.6 (12.0-20.0); Calcium, Blood 8.8 mg/dL (8.5-10.1); Creatinine, Blood 0.58 mg/dL (0.40-1.00); Globulin, Blood 3.5 g/dL (2.2-4.0); Potassium, Blood 3.1 mmol/L (3.5-5.5); Total Protein, Blood 6.5 g/dL (6.4-8.2)
[2022-10-24 13:52] LABS: Source, Urine Straight Cath
[2022-10-24 14:17] LABS: Bilirubin, Urine Neg (Neg); Blood, Urine Neg (Neg); Color, Urine Yellow (P-Yellow); Glucose Qualitative, Urine Neg (Neg); Ketones, Urine 1+ (Neg); Leukocyte Esterase, Urine Neg (Neg); Nitrite, Urine Neg (Neg); Protein, Urine 1+ (Neg); Specific Gravity, Urine 1.015 (1.003-1.022); Urobilinogen, Urine NORM (Normal); pH, Urine 6.5 (5.0-8.0)
[2022-10-24 15:26] LABS: Appearance, Urine Clear (Clear)
[2022-10-24 16:42] LABS: Influenza A, PCR NEGATIVE (NEGATIVE); Influenza B, PCR NEGATIVE (NEGATIVE); Resp Syncytial Virus, PCR NEGATIVE (NEGATIVE); SARS-Cov-2 (COVID-19) PCR, MMC NEGATIVE (NEGATIVE)
[2022-10-25 04:03] LABS: BASOPHILS ABSOLUTE AUTO 0.01 K/mm3 (0.00-0.23); BASOPHILS PERCENT AUTO 0 % (0-2); EOSINOPHILS ABSOLUTE AUTO 0.02 K/mm3 (0.00-0.68); EOSINOPHILS PERCENT AUTO 1 % (0-6); Hematocrit 32.2 % (33.0-51.0); Hemoglobin 11.1 g/dL (11.5-16.0); IMMATURE GRAN ABSOLUTE AUTO 0.01 K/mm3 (0.00-0.10); IMMATURE GRAN PERCENT AUTO 0 % (0-1); LYMPHOCYTES ABSOLUTE AUTO 0.61 K/mm3 (0.84-5.20); LYMPHOCYTES PERCENT AUTO 16 % (21-46); MONOCYTES ABSOLUTE AUTO 0.42 K/mm3 (0.16-1.47); MONOCYTES PERCENT AUTO 11 % (4-13); Mean Corpuscular HGB 32.6 pg (26.0-34.0); Mean Corpuscular HGB Conc 34.5 g/dL (31.5-36.5); Mean Corpuscular Volume 94 fL (80-100); Mean Platelet Volume 9.5 fL (9.1-12.4); NEUTROPHILS ABSOLUTE AUTO 2.67 K/mm3 (1.96-9.15); NEUTROPHILS PERCENT AUTO 71 % (41-73); Platelet Count 160 K/mm3 (150-400); RDW Standard Deviation 41.2 fL (35.1-46.3); Red Blood Cell Count 3.41 M/mm3 (3.80-5.20); White Blood Cell Count 3.74 K/mm3 (4.00-11.30)
[2022-10-25 04:52] LABS: Albumin, Blood 2.6 g/dL (3.4-5.0); Albumin/Globulin Ratio 0.7 (0.8-1.8); Bilirubin, Total 0.3 mg/dL (0.1-1.0); Bun/Creatinine Ratio 27.4 (12.0-20.0); Calcium, Blood 8.2 mg/dL (8.5-10.1); Creatinine, Blood 0.47 mg/dL (0.40-1.00); Globulin, Blood 3.6 g/dL (2.2-4.0); Potassium, Blood 3.5 mmol/L (3.5-5.5); Total Protein, Blood 6.2 g/dL (6.4-8.2)
--- NOTE | 2022-10-25 05:59 | NUR ---
SHIFT SUMMARY ASSUMED CARE OF PT AT 1900. PT IS A/OX4. HEART SOUNDS REGULAR. LUNG SOUNDS DIMINISHED AT BASES. PT REMAINED ABOVE 95% T/O THE NIGHT. PT REMAINED IN BED DURING THE NIGHT. JONATHAN. PT HAD NO COMPLAINTS AND SLEPT T/O THE NIGHT.
--- NOTE | 2022-10-25 18:53 | NUR ---
END OF SHIFT: NO SIGNIFICANT CHANGES THROUGH THE ENTIRE SHIFT. PATIENT MENTATION ONLY IMPROVED, WAS GROGGY DURING LUNCH, BUT IMPROVED SHORTLY AFTER. PATIENT IS ABLE TO MAKE NEEDS KNOWN, DENIES CHEST PAIN/PRESSURE OR SOB AT REST. PATIENT MENTAL HEALTH MEDS TO BE GIVEN THIS PM. TOLERATES PILLS WELL. TELE IN PLACE. MEDICAL STATUS NO TELE. PATIENT IMPROVING WELL. NO CONCERNS FROM THE PATIENT OR THIS RN AT THIS TIME.
[2022-10-26 05:10] LABS: Hematocrit 32.6 % (33.0-51.0); Hemoglobin 11.3 g/dL (11.5-16.0); Mean Corpuscular HGB 32.5 pg (26.0-34.0); Mean Corpuscular HGB Conc 34.7 g/dL (31.5-36.5); Mean Corpuscular Volume 94 fL (80-100); Mean Platelet Volume 9.8 fL (9.1-12.4); Platelet Count 179 K/mm3 (150-400); RDW Coefficient Variation 11.9 % (11.7-14.2); Red Blood Cell Count 3.48 M/mm3 (3.80-5.20)
--- NOTE | 2022-10-26 05:49 | NUR ---
SHIFT SUMMARY A/OX4, FLAT/WITHDRAWN. 1P ASSIST TO BSC. CALLS APPROPRIATELY. DENIES PAIN OR SOB. VSS, NO ACUTE CHANGES AT THIS TIME. BED IN LOWEST POSITION WITH CALL LIGHT IN REACH. WILL CONTINUE TO MONITOR AND REPORT TO ONCOMING RN.
[2022-10-26 06:40] LABS: Bun/Creatinine Ratio 15.9 (12.0-20.0); Calcium, Blood 8.9 mg/dL (8.5-10.1); Creatinine, Blood 0.5 mg/dL (0.40-1.00); Potassium, Blood 3.3 mmol/L (3.5-5.5)
--- NOTE | 2022-10-26 19:20 | NUR ---
PT ALERT, RESTING IN BED. NO S/S OF ACUTE DISTRESS, SAFETY MEASURES IN PLACE REPORT GIVEN TO ON COMING NURSE.
--- NOTE | 2022-10-27 04:46 | NUR ---
SUMMARY: PATIENT DID WELL OVERNIGHT. NO ACUTE EVENTS. AOX3-4. PLEASANT WITH STAFF. ORAL ANTIBIOTICS GIVEN. AMBULATED UP TO RESTROOM SBA MANY TIMES WITH WALKER. CALLS APPROPRIATELY. CALL LIGHT IN REACH BED ALARM ON.
[2022-10-27 05:20] LABS: BASOPHILS ABSOLUTE AUTO 0.02 K/mm3 (0.00-0.23); BASOPHILS PERCENT AUTO 1 % (0-2); EOSINOPHILS ABSOLUTE AUTO 0.01 K/mm3 (0.00-0.68); EOSINOPHILS PERCENT AUTO 0 % (0-6); Hematocrit 33.9 % (33.0-51.0); Hemoglobin 11.7 g/dL (11.5-16.0); IMMATURE GRAN ABSOLUTE AUTO 0.02 K/mm3 (0.00-0.10); IMMATURE GRAN PERCENT AUTO 1 % (0-1); LYMPHOCYTES ABSOLUTE AUTO 1.24 K/mm3 (0.84-5.20); LYMPHOCYTES PERCENT AUTO 31 % (21-46); MONOCYTES ABSOLUTE AUTO 0.45 K/mm3 (0.16-1.47); MONOCYTES PERCENT AUTO 11 % (4-13); Mean Corpuscular HGB 32.4 pg (26.0-34.0); Mean Corpuscular HGB Conc 34.5 g/dL (31.5-36.5); Mean Corpuscular Volume 94 fL (80-100); Mean Platelet Volume 9.4 fL (9.1-12.4); NEUTROPHILS ABSOLUTE AUTO 2.33 K/mm3 (1.96-9.15); NEUTROPHILS PERCENT AUTO 57 % (41-73); Platelet Count 196 K/mm3 (150-400); RDW Coefficient Variation 11.9 % (11.7-14.2); RDW Standard Deviation 40.5 fL (35.1-46.3); Red Blood Cell Count 3.61 M/mm3 (3.80-5.20); White Blood Cell Count 4.07 K/mm3 (4.00-11.30)
[2022-10-27 05:40] LABS: Albumin, Blood 2.7 g/dL (3.4-5.0); Anion Gap 8 mmol/L (6-16); Blood Urea Nitrogen 12 mg/dL (8-24); CO2, Blood 25 mmol/L (21-32); Chloride, Blood 107 mmol/L (98-108); Creatinine, Blood 0.52 mg/dL (0.40-1.00); Glomerular Filtration Rate 97 (60-); Glucose, Blood 88 mg/dL (70-99); Phosphorus, Blood 3.3 mg/dL (2.5-4.9); Potassium, Blood 3.8 mmol/L (3.5-5.5); Sodium, Blood 140 mmol/L (136-145)
[2022-10-27] MEDS ORDERED: VISBIOME 112.51 EACH PO (12:31)
[2022-10-27] MEDS ORDERED: DOXY100 PO (12:31)
== END 2022-10-27 16:00 | disposition home health service (06) | DRG 689 ==
LOC: ER 12:14 → PCU 15:20 → MEDS 10-26 11:05
PROVIDERS: Emergency Medicine; Family Medicine; Internal Medicine; ADMIT Internal Medicine
DX: N39.0 Urinary tract infection, site not specified (principal); G92.8 Other toxic encephalopathy; K21.9 Gastro-esophageal reflux disease without esophagitis; R54 Age-related physical debility; F31.9 Bipolar disorder, unspecified; I10 Essential (primary) hypertension; M54.9 Dorsalgia, unspecified; G89.29 Other chronic pain; J47.9 Bronchiectasis, uncomplicated; E86.0 Dehydration; I67.9 Cerebrovascular disease, unspecified; G47.30 Sleep apnea, unspecified; Z20.822 Contact with and (suspected) exposure to COVID-19; Z98.890 Other specified postprocedural states; Z88.8 Allergy status to other drugs, medicaments and biological substances; Z86.73 Personal history of transient ischemic attack (TIA), and cerebral infarction without residual deficits; Z79.899 Other long term (current) drug therapy; Z79.2 Long term (current) use of antibiotics; Z99.81 Dependence on supplemental oxygen; Z90.710 Acquired absence of both cervix and uterus; Z87.891 Personal history of nicotine dependence
CPT/HCPCS: 0241U; 36415; 70450; 71045; 80048; 80053; 80069; 83605; 83735; 83880; 84145; 85025; 85027; 87040; 93005; 93010; 96365; 96366; 96375; 97116; 97129; 97130; 97162; 97165; 97530; 97535; 99285-25; A9270; J0696; J1650; J3480; J7030; J7050

== ENCOUNTER → 2022-12-23 | Outpatient (CLI) | payer OTHER ==
[~2022-12-23] MED LIST changes: +DOXY100 PO; +VISBIOME 112.51 EACH PO
[2022-12-23 13:48] LABS: Bilirubin, Urine Neg (Neg); Blood, Urine Neg (Neg); Glucose Qualitative, Urine Neg (Neg); Ketones, Urine Neg (Neg); Leukocyte Esterase, Urine Neg (Neg); Nitrite, Urine Neg (Neg); Protein, Urine Neg (Neg); Urobilinogen, Urine NORM (Normal)
[2022-12-23 14:36] LABS: Appearance, Urine Clear (Clear); Color, Urine Pale Yellow (P-Yellow)
== END | disposition home or self-care (01) ==
LOC: LAB SHORT 06:55
PROVIDERS: Internal Medicine
DX: N39.0 Urinary tract infection, site not specified (principal); I10 Essential (primary) hypertension; E87.1 Hypo-osmolality and hyponatremia
CPT/HCPCS: 81003

== ENCOUNTER → 2023-02-14 | Outpatient (CLI) | payer OTHER | END | disposition home or self-care (01) | LOC: LAB SHORT 11:00 → LAB 11:00 | DX: R30.0 Dysuria (principal) | CPT/HCPCS: 87077; 87086; 87186 ==

== ENCOUNTER 2023-10-10 11:21 | Emergency (ER) | payer OTHER ==
[~2023-10-10] VITALS: Ht 162.6 cm; Wt 68.0 kg
[~2023-10-10 11:21] MED LIST changes: +TOPROL XL25 MG PO
[2023-10-10 12:22] LABS: BASOPHILS ABSOLUTE AUTO 0.02 K/mm3 (0.00-0.23); BASOPHILS PERCENT AUTO 0 % (0-2); EOSINOPHILS ABSOLUTE AUTO 0.01 K/mm3 (0.00-0.68); EOSINOPHILS PERCENT AUTO 0 % (0-6); Hematocrit 37.9 % (33.0-51.0); Hemoglobin 13.4 g/dL (11.5-16.0); IMMATURE GRAN ABSOLUTE AUTO 0.03 K/mm3 (0.00-0.10); IMMATURE GRAN PERCENT AUTO 0 % (0-1); LYMPHOCYTES ABSOLUTE AUTO 1.79 K/mm3 (0.84-5.20); LYMPHOCYTES PERCENT AUTO 27 % (21-46); MONOCYTES PERCENT AUTO 7 % (4-13); Mean Corpuscular HGB 31.6 pg (26.0-34.0); Mean Corpuscular HGB Conc 35.4 g/dL (31.5-36.5); Mean Corpuscular Volume 89 fL (80-100); NEUTROPHILS ABSOLUTE AUTO 4.41 K/mm3 (1.96-9.15); NEUTROPHILS PERCENT AUTO 65 % (41-73); Platelet Count 264 K/mm3 (150-400); RDW Standard Deviation 39.5 fL (35.1-46.3); Red Blood Cell Count 4.24 M/mm3 (3.80-5.20); White Blood Cell Count 6.76 K/mm3 (4.00-11.30)
[2023-10-10 12:48] LABS: Albumin/Globulin Ratio 0.9 (0.8-1.8); Bilirubin, Total 0.6 mg/dL (0.1-1.0); Creatinine, Blood 0.64 mg/dL (0.40-1.00); Globulin, Blood 4.4 g/dL (2.2-4.0); Potassium, Blood 3.8 mmol/L (3.5-5.5); Total Protein, Blood 8.4 g/dL (6.4-8.2)
[2023-10-10 14:54] LABS: Source, Urine Straight Cath
[2023-10-10 15:03] LABS: Bilirubin, Urine Neg (Neg); Blood, Urine 1+ (Neg); Color, Urine Yellow (P-Yellow); Glucose Qualitative, Urine Neg (Neg); Ketones, Urine Neg (Neg); Leukocyte Esterase, Urine 3+ (Neg); Nitrite, Urine Neg (Neg); Protein, Urine Neg (Neg); Specific Gravity, Urine 1.015 (1.003-1.022); Urobilinogen, Urine NORM (Normal)
[2023-10-10 15:13] LABS: Appearance, Urine Clear (Clear)
[2023-10-10 15:14] LABS: Bacteria Mod /hpf; Red Blood Cells, Urine 0-2 /hpf (0-2); Squamous Epithelial Cells Rare /hpf (Few); White Blood Cells, Urine 25-50 /hpf (0-5)
[2023-10-10 16:00] VITALS: BP 110/85
[2023-10-10] MEDS ORDERED: CEFD300 PO (16:42)
== END 2023-10-10 17:08 | disposition home or self-care (01) ==
LOC: ER 11:21
PROVIDERS: Physician Assistant
DX: N39.0 Urinary tract infection, site not specified (principal); F31.9 Bipolar disorder, unspecified; K59.00 Constipation, unspecified; I10 Essential (primary) hypertension; G47.30 Sleep apnea, unspecified; K21.9 Gastro-esophageal reflux disease without esophagitis; Z88.8 Allergy status to other drugs, medicaments and biological substances; Z88.5 Allergy status to narcotic agent; Z79.899 Other long term (current) drug therapy; Z87.891 Personal history of nicotine dependence
CPT/HCPCS: 74018; 80053; 81001; 85025; 87086; 96365; 99285-25; J0696

== ENCOUNTER 2023-10-13 09:36 | Observation (INO) | payer OTHER ==
[~2023-10-13] VITALS: Ht 170.2 cm; Wt 72.4 kg
[~2023-10-13 09:36] MED LIST changes: +CEFD300 PO
[2023-10-13] MEDS ORDERED: Keflex250 MG PO (10:44)
[2023-10-13] MEDS ORDERED: QUETIAPINE FUM10011 PO (10:46)
[2023-10-13] MEDS ORDERED: MELO7.5 PO (10:47)
[2023-10-13] MEDS ORDERED: Atarax10 MG PO (10:47)
[2023-10-13] MEDS ORDERED: ARIPIPRAZOLE2 M1 PO (10:48)
[2023-10-13 11:02] LABS: BASOPHILS ABSOLUTE AUTO 0.02 K/mm3 (0.00-0.23); BASOPHILS PERCENT AUTO 0 % (0-2); EOSINOPHILS PERCENT AUTO 0 % (0-6); Hematocrit 34.2 % (33.0-51.0); Hemoglobin 12.2 g/dL (11.5-16.0); IMMATURE GRAN ABSOLUTE AUTO 0.01 K/mm3 (0.00-0.10); IMMATURE GRAN PERCENT AUTO 0 % (0-1); LYMPHOCYTES PERCENT AUTO 22 % (21-46); MONOCYTES ABSOLUTE AUTO 0.46 K/mm3 (0.16-1.47); MONOCYTES PERCENT AUTO 10 % (4-13); Mean Corpuscular HGB 31.8 pg (26.0-34.0); Mean Corpuscular HGB Conc 35.7 g/dL (31.5-36.5); Mean Corpuscular Volume 89 fL (80-100); Mean Platelet Volume 9.3 fL (9.1-12.4); NEUTROPHILS ABSOLUTE AUTO 3.16 K/mm3 (1.96-9.15); NEUTROPHILS PERCENT AUTO 68 % (41-73); Platelet Count 197 K/mm3 (150-400); RDW Coefficient Variation 11.9 % (11.7-14.2); Red Blood Cell Count 3.84 M/mm3 (3.80-5.20); White Blood Cell Count 4.65 K/mm3 (4.00-11.30)
[2023-10-13 11:22] LABS: Albumin, Blood 3.7 g/dL (3.4-5.0); Bilirubin, Total 0.5 mg/dL (0.1-1.0); Bun/Creatinine Ratio 20.2 (12.0-20.0); Calcium, Blood 9.2 mg/dL (8.5-10.1); Creatinine, Blood 0.6 mg/dL (0.40-1.00); Globulin, Blood 3.8 g/dL (2.2-4.0); Total Protein, Blood 7.5 g/dL (6.4-8.2)
[2023-10-15 00:38] VITALS: BP 118/72
[2023-10-15 04:37] VITALS: BP 147/84
--- NOTE | 2023-10-15 05:07 | NUR ---
SHIFT SUMMARY: KASI IS ALERT AND ORIENTED TO SELF. VSS, NO ACUTE EVENTS SINCE ADMISSION TO THE FLOOR THIS SHIFT. PT HAS HAD MULTIPLE INCONTINENT EPISODES, 1-PERSON ASSIST TO THE BATHROOM WITH THE GAIT BELT AND FWW. SHE IS TOLERATING WATER INTAKE WITHOUT DIFFICULTY. SPEECH PRESSURED, RAMBLING. PT RESTED QUIETLY IN BED FOR APPROX 1 HOUR, AWAKE AND VERBOSE THE REST OF THE TIME. ATTENDS IN PLACE. BLADDER SCAN SHOWED >999, CALLED HOSPITALIST WHO GAVE ORDER FOR RODRIGUEZ CATHETER. WILL REPORT TO ONCOMING RN.
[2023-10-15 06:15] LABS: Bun/Creatinine Ratio 14.8 (12.0-20.0); Calcium, Blood 9.4 mg/dL (8.5-10.1); Creatinine, Blood 0.68 mg/dL (0.40-1.00); Potassium, Blood 3.8 mmol/L (3.5-5.5)
[2023-10-15 06:44] LABS: Source, Urine Foley catheter
[2023-10-15 07:17] VITALS: BP 146/105
[2023-10-15 07:36] LABS: Appearance, Urine Clear (Clear); Bilirubin, Urine Neg (Neg); Blood, Urine Neg (Neg); Color, Urine Yellow (P-Yellow); Glucose Qualitative, Urine Neg (Neg); Ketones, Urine Neg (Neg); Leukocyte Esterase, Urine Neg (Neg); Nitrite, Urine Neg (Neg); Protein, Urine Neg (Neg); Urobilinogen, Urine NORM (Normal)
--- NOTE | 2023-10-15 11:19 | NUR ---
Upon receiving a referral for spiritual care, I visted the patient. Patient's son, Soren, is bedside and immediately stands up and leaning towards me and speaking loudly. He expresses his frustration about a disparity between the white board (which reads regular diet) and the fact that the patient has no teeth, he voices his concerns about the changes in her medication plan from last night to this morning, and about her need for sleep which has not been managed since 10/03/23, according to the Soren. He states his Cheondoism beliefs and explains about his mother's julio and how it manifests with her speaking in tongues and praying 03/05. He asks me to stay while he met with Dr. Li. Soren is much more calm with Dr. Li and softly voices his concerns. Dr. Li is very patient and kind with Soren and they work on a plan that is agreeable to both parties. Soren voices his satisfaction with Dr. Li and his beleif that his concerns for his mother will be adequately addressed. I provided therapeutic listening and prayer. Both patient and Soren showed signs of increased peace.
--- NOTE | 2023-10-15 12:28 | NUR ---
PT IS RESTING COMFORTABLY, EYES CLOSED, RESP EVEN & UNLABORED WITH SOFT SNORING. PT WOULD NOT WAKE UP FOR LUNCH. PT'S SON STATED PT HAD NOT SLEPT IN DAYS & HAS BEEN QUITE SLEEP DEPRIVED. PLACED CALL TO PT'S SON TO INFORM HIM THAT HIS MOM IS APPARENTLY FINALLY SLEEPING.
--- NOTE | 2023-10-15 15:29 | NUR ---
LATE ENTRY 1320: PT IS AGAIN AWAKE AND MUMBLING QUIETLY TO HERSELF WITH OCCASIONAL RAISING OF HANDS.
--- NOTE | 2023-10-15 15:34 | NUR ---
PT HAS REMAINED AWAKE SINCE HER SHORT NAP EARLIER. CONTINUES TO CONSTANTLY MUMBLE TO SELF AGAIN WITH OCCASIONAL RAISING OF HANDS.
[2023-10-15 15:50] VITALS: BP 139/69
--- NOTE | 2023-10-15 18:27 | NUR ---
SHIFT SUMMARY A&O X 1-2, VSS. IS CONFUSED & FORGETFUL. HAS BEEN MUMBLING TO SELF, SEEMS TO BE PRAYING WITH A BIBLE ON HER CHEST, RAISES HER HANDS IN THE AIR OCCASIONALLY. MOUTH IS DRY, BEEN GIVING HER MOUTH MOISTURIZER AND APPLYING CHAPSTICK. DR. CUNHA & DR. HEAD HERE, ORDERS RECEIVED FOR ATIVAN TO BE GIVEN AT END OF SHIFT TO ENCOURAGE PT TO SLEEP.
--- NOTE | 2023-10-15 19:39 | NUR ---
SHIFT SUMMARY ADDENDUM: AT BEDSIDE SHIFT REPORT WITH NOC NURSE, PT APPEARS ASLEEP, LIGHTLY SNORING. ATIVAN & ZYPREXA GIVEN ORDERED AT TIME SHOWN ON EMAR.
[2023-10-15 20:11] VITALS: BP 128/74
[2023-10-16 04:32] VITALS: BP 104/55
--- NOTE | 2023-10-16 04:34 | NUR ---
SHIFT SUMMARY PATIENT HAD NO ACUTE CHANGES. ALERT TO SELF. AUROUSABLE TO TAKE MEDICATION AT START OF SHIFT AND FELL BACK TO SLEEP. NO IV ACCESS. RODRIGUEZ PATENT AND DRAINING TO GRAVITY. DENIES CHEST PAIN, SOB, AND N/V. VSS/AFEBRILE. ON ROOM AIR. CALL LIGHT IN REACH. BED IN LOWEST POSITION AND ALARM ACTIVATED. WILL CONTINUE TO MONITOR UNTIL DAY SHIFT NURSE ASSUMES CARE.
[2023-10-16 07:30] VITALS: BP 116/61
--- NOTE | 2023-10-16 14:06 | NUR ---
PHYSICIAN CONTACT RECEIVED CALL FROM DR PEDROZA, ORDERED FOR SEROQUEL AND ATIVAN TO BE GIVEN TOGETHER AT 1900 DAILY STARTING TODAY. ORDER IN, WILL CONTINUE TO MONITOR
[2023-10-16 16:22] VITALS: BP 135/94
--- NOTE | 2023-10-16 18:10 | NUR ---
SHIFT SUMMARY PATIENT CONTINUES TO PRAY CONSTANTLY AND MUMBLE INCOHERENTLY. AGREEABLE TO TAKE MEDICATIONS AND EATING WITH SET UP ASSISTANCE AND GIVEN FIRST BITE. RODRIGUEZ DRAINING 2300ML OF URINE. PATIENT CARE ONGOING.
[2023-10-16 20:02] VITALS: BP 132/62
[2023-10-17 02:36] VITALS: BP 129/89
--- NOTE | 2023-10-17 04:32 | NUR ---
SHIFT SUMMARY PATIENT HAD NO ACUTE CHANGES. AXOX 2 AND BEDREST. PATIENT ABLE TO SLEEP LAST FIVE HOURS. TAKES MEDICATION WHOLE X ONE EACH. VSS/AFEBRILE. DENIES CHEST PAIN, SOB, AND N/V. RODRIGUEZ PATENT AND DRAINING TO GRAVITY FOR RETENTION. PRAYING AND CHANTING FIRST PART OF SHIFT. COOPERATIVE WITH CARE. CALL LIGHT IN REACH. BED IN LOWEST POSITION. WILL CONTINUE TO MONITOR UNTIL DAY SHIFT NURSE ASSUMES CARE.
--- NOTE | 2023-10-17 04:56 | NUR ---
PATIENT AWAKE AND CALLING OUT IN NON SENSICAL SPEECH. STOPS WHEN ENTERING ROOM. CONTINUES WHEN LEAVING. CALL LIGHT IN REACH. BED ALARM ON. WCTM.
[2023-10-17 07:12] VITALS: BP 140/87
--- NOTE | 2023-10-17 18:03 | NUR ---
SHIFT SUMMARY RODRIGUEZ DISCONTINUED THIS SHIFT, ABLE TO VOID ADEQUATELY AFTER REMOVAL. ABLE TO WALK TO BATHROOM WITH STEADY GAIT AND 1 ASSIST. MOMENTS OF LUCIDITY AND USING CALL LIGHT APPROPRIATELY, AND CONTINUES TO PRAY AND TALK CONSTANTLY REGARDING SCIENTOLOGIST. BED EXITING ONCE THIS SHIFT. CARES ONGOING.
[2023-10-17 18:16] VITALS: BP 147/80
[2023-10-17 19:51] VITALS: BP 127/79
--- NOTE | 2023-10-18 01:14 | NUR ---
PATIENT AWAKE AFTER SLEEPING FROM 21:00 TO 01:00. PATIENT OOB REQUESTING WATER REFILL. WATER PROVIDED AND PATIENT BACK IN BED SPIRITUAL CHANTING WITH HER ARMS RAISED. BED ALARM ON. WCTM.
[2023-10-18 05:04] VITALS: BP 113/72
--- NOTE | 2023-10-18 05:14 | NUR ---
SHIFT SUMMARY PATIENT HAS SLEPT TOTAL OF 7.5 HOURS TO THIS POINT. FOUR HOURS FROM 21:00 UNTIL 01:00 AND NEXT 01:45 TO 05:15. UP TO BATHROOM AT THIS TIME. AXOX 2 AND ONE ASSIST TO BR. NO IV ACCESS. WHEN AWAKE, SPIRITUAL CHANTING AND PRAYING. VSS/AFEBRILE. DENIES CHEST PAIN, SOB, AND N/V. CALL LIGHT IN REACH. BED IN LOWEST POSITION AND ALARM ON. WILL CONTINUE TO MONITOR UNTIL DAY SHIFT NURSE ASSUMES CARE.
[2023-10-18 07:14] VITALS: BP 122/73
[2023-10-18 15:21] VITALS: BP 106/65
[2023-10-18 16:20] VITALS: BP 125/61
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
--- NOTE | 2023-10-18 18:14 | NUR ---
SHIFT SUMMARY PT PLEASANT & COOPERATIVE T/O SHIFT. AMBULATING TO THE BATHROOM WITH MINIMAL ASSISTANCE. UP IN CHAIR FOR MEALS. PTS SON, SAMMY IN TO SEE THE PT THIS AM. RELAED HE IS CONCERNED ABOUT THE LACK OF COMMUNICATION AND CHANGING OF ORDERS WHEN PHYSCIANS CERTIFIED MARINE MECHANIC. SON EDUCATED ON THE DIFFERENC BETWEEN MEDICAL AND PSYCHIATRIC CARE AND HOW DIFFERENT PROVIDERS MANAGE EACH SEPARETLY. PATIENT ADVOCATE NUMBER ALSO GIVEN TO PTS SON. SAMMY STATED HIS MOTHER SEEMS MORE ORIENTED TODAY. PT IS STILL CONFUSED HOWEVER AND IS HALLUCINATING AT TIMES. EASILY REDIRECTABLE. NO OTHER ACUTE CHANGES IN ASSESSMENT AT THIS TIME. VS REVEIWED. CALL LIGHT IN REACH. DENIES OTHER NEEDS AT THIS TIME.
[2023-10-18 20:41] VITALS: BP 116/56
[2023-10-19 05:09] VITALS: BP 118/71
--- NOTE | 2023-10-19 05:43 | NUR ---
END OF SHIFT SUMMARY PT A&O x1-2, VSS, AFEBRILE, ON RA. PT PLEASANTLY CONFUSED. PT CALLS FOR ASSISTANCE APPROPRIATELY. PT 1P SBA WITH FWW TO THE RESTROOM. PT CONFUSED, ASKING WHERE HER BROTHER LUDWIG WAS, AND TO HAVE HIM COME UP TO VISIT WITH HER. PT APPEARED TO BE ASLEEP STARTING AT 2330. PT WOKE UP AT AROUND 0430, AND STATED THAT SHE HAD A ZHAO. NEW ORDER FOR APAP 650MG Q6 PRN GIVEN AND EFFECTIVE. CALL LIGHT WITHIN REACH, WCTM.
[2023-10-19 07:24] VITALS: BP 139/82
[2023-10-19 15:11] VITALS: BP 143/67
--- NOTE | 2023-10-19 16:47 | NUR ---
SHIFT SUMMARY PT ONLY SLEPT 5 HOURS OVERNIGHT PER NOC REPORT. PT UP IN CHAIR MOST THE DAY. TALKING TO HERSELF AND PRAYING. PT PLEASANT & COOPERATIVE T/O SHIFT. SHOWERED TODAY AND AMBULATING TO THE BATHROOM. DR. PATINOUFF IN TO DISCUSS PLAN OF CARE WITH THE PATIENT AND HER SONSAMMY THIS AM. PLAN TO INCREASE ATIVAN DOSE TONIGHT TO 4MG AND MONITOR ANOTHER NIGHT. PTS SON HAPPY WITH THIS PLAN. NO OTHER ACUTE CHANGES IN ASSESSMENT AT THIS TIME. VS REVIEWED. CALL LIGHT IN REACH. DENIES OTHER NEEDS AT THIS TIME.
[2023-10-19 19:52] VITALS: BP 145/72
[2023-10-20 03:50] VITALS: BP 136/68
--- NOTE | 2023-10-20 04:14 | NUR ---
SHIFT SUMMARY PT ADMIT DUE TO DEMENTIA AND NOT SLEEPING FOR SEVERAL (11-13 PER REPORT) DAYS STRAIGHT. PT SPEAKING IN MANDAEN TONES, PRAYING CONSTANTLY. ADMINISTERED MEDICATION PER EMAR AT 1900 AND SLEPT FROM 2235 TO 0355. STATED HEALTHCARE STAFF ARE "ANGELS FROM GOD". PT PLEASANT AND HAPPY, BUT CONFUSED. STILL A&O X1 (SELF). PT LAY BACK DOWN TO TRY TO GET MORE SLEEP STARTING AT 0420.
[2023-10-20 07:09] VITALS: BP 133/72
[2023-10-20] MEDS ORDERED: AMLO5 PO (13:33)
[2023-10-20] MEDS ORDERED: ABILIFY MYCITE5 M2 PO (13:33)
[2023-10-20] MEDS ORDERED: QUET200 PO (13:33)
[2023-10-20] MEDS ORDERED: LORA2 PO (13:34)
--- NOTE | 2023-10-20 15:20 | NUR ---
CALLED SON SAMMY TO INFORM HIM THAT DISCHARGE PATERWORK IS COMPLETE AND IS HE GOING TO BE ABLE TO GET HIS MOM TODAY TO TAKE HOME- HE SAID "WELL THEY SAY I HAVE TO OR THAT I AM REFUSING, THAT IS YOUR ANSWER". RN ASKED WHEN HE WOULD BE ABLE TO BE HERE, HE HUNG UP ON RN.
--- NOTE | 2023-10-20 16:22 | NUR ---
PT DISCHARGED WITH DC INSTRUCTIONS TO PT AND DAUGHTER IN LAW (GABRIELE ) WHEELCHAIR OUT TO PRIVATE CAR FOR DC HOME. PRESCRIPTION GIVEN TO SAMMY WHO FILLED RX AT [facility]. OTHER MEDS FAXED TO FOR ROLL TABLE OPERATOR. BELONGINGS SENT HOME WITH PT
== END 2023-10-20 16:17 | disposition home or self-care (01) ==
LOC: ER 09:36 → ERHOLD 09:37 → ER 10-14 09:37 → ERHOLD 10-14 09:37 → MEDS 10-14 09:37 → ERHOLD 10-15 00:01 → MEDS 10-15 00:01 → ENPENDDIS 10-20 11:30 → MEDS 10-20 16:17
PROVIDERS: Emergency Medicine; Nurse Practitioner Acute Care; ADMIT Internal Medicine
DX: R33.9 Retention of urine, unspecified (principal); F31.9 Bipolar disorder, unspecified; I10 Essential (primary) hypertension; Z79.899 Other long term (current) drug therapy; Z88.8 Allergy status to other drugs, medicaments and biological substances; Z87.891 Personal history of nicotine dependence
CPT/HCPCS: 36415; 51702; 51798; 80048; 80053; 81003; 85025; 96372; 99284-25; A9270; G0378; J1650

== ENCOUNTER → 2023-11-09 | Outpatient (CLI) | payer OTHER ==
[~2023-11-09] MED LIST changes: +ABILIFY MYCITE5 M2 PO; +ARIPIPRAZOLE2 M1 PO; +Atarax10 MG PO; +OLANZAPINE1024 PO; +QUET200 PO; +QUETIAPINE FUM10011 PO
[2023-11-09 09:49] LABS: Source, Urine Clean Catch
[2023-11-09 13:20] LABS: Appearance, Urine Clear (Clear); Bilirubin, Urine Neg (Neg); Blood, Urine Neg (Neg); Color, Urine Yellow (P-Yellow); Glucose Qualitative, Urine Neg (Neg); Ketones, Urine Neg (Neg); Leukocyte Esterase, Urine Neg (Neg); Nitrite, Urine Neg (Neg); Protein, Urine Neg (Neg); Specific Gravity, Urine 1.005 (1.003-1.022); Urobilinogen, Urine NORM (Normal)
== END ==
LOC: LAB 09:48 → LAB SHORT 09:48
PROVIDERS: Internal Medicine
DX: N39.0 Urinary tract infection, site not specified (principal)
CPT/HCPCS: 81003

== ENCOUNTER 2023-11-10 13:49 | Observation (INO) | payer OTHER ==
[~2023-11-10] VITALS: Ht 175.3 cm; Wt 73.0 kg
[~2023-11-10 13:49] MED LIST changes: -OLANZAPINE1024 PO
[2023-11-10 14:31] LABS: BASOPHILS ABSOLUTE AUTO 0.02 K/mm3 (0.00-0.23); BASOPHILS PERCENT AUTO 0 % (0-2); EOSINOPHILS PERCENT AUTO 0 % (0-6); Hematocrit 37.1 % (33.0-51.0); IMMATURE GRAN ABSOLUTE AUTO 0.01 K/mm3 (0.00-0.10); IMMATURE GRAN PERCENT AUTO 0 % (0-1); LYMPHOCYTES ABSOLUTE AUTO 1.52 K/mm3 (0.84-5.20); LYMPHOCYTES PERCENT AUTO 21 % (21-46); MONOCYTES ABSOLUTE AUTO 0.47 K/mm3 (0.16-1.47); MONOCYTES PERCENT AUTO 7 % (4-13); Mean Corpuscular HGB 31.9 pg (26.0-34.0); Mean Corpuscular Volume 91 fL (80-100); Mean Platelet Volume 8.9 fL (9.1-12.4); NEUTROPHILS ABSOLUTE AUTO 5.17 K/mm3 (1.96-9.15); NEUTROPHILS PERCENT AUTO 72 % (41-73); Platelet Count 300 K/mm3 (150-400); RDW Coefficient Variation 12.4 % (11.7-14.2); RDW Standard Deviation 41.1 fL (35.1-46.3); Red Blood Cell Count 4.08 M/mm3 (3.80-5.20); White Blood Cell Count 7.19 K/mm3 (4.00-11.30)
[2023-11-10] MEDS ORDERED: OLANZAPINE1024 PO (14:32)
[2023-11-10] MEDS ORDERED: QUETIAPINE FUM10011 PO (14:35)
[2023-11-10 14:54] LABS: Alanine Aminotransfer (ALT/SGP 23 U/L (12-78); Albumin, Blood 3.8 g/dL (3.4-5.0); Albumin/Globulin Ratio 0.8 (0.8-1.8); Alk Phos 118 U/L (50-136); Anion Gap 3 mmol/L (6-16); Aspartate Aminotrans (AST/SGOT 17 U/L (12-37); Bilirubin, Total 0.3 mg/dL (0.1-1.0); Blood Urea Nitrogen 13 mg/dL (8-24); Bun/Creatinine Ratio 25.7 (12.0-20.0); CO2, Blood 26 mmol/L (21-32); Calcium, Blood 9.5 mg/dL (8.5-10.1); Chloride, Blood 108 mmol/L (98-108); Creatinine, Blood 0.51 mg/dL (0.40-1.00); Globulin, Blood 4.5 g/dL (2.2-4.0); Glomerular Filtration Rate 97 (60-); Glucose, Blood 150 mg/dL (70-99); Potassium, Blood 4.1 mmol/L (3.5-5.5); Sodium, Blood 137 mmol/L (136-145); Total Protein, Blood 8.3 g/dL (6.4-8.2)
[2023-11-10] MEDS ORDERED: Divalproex Sodium 500 MG TABLET.DR PO ONE (15:35)
[2023-11-10 15:51] LABS: Ethanol (Alcohol), Blood, Med <3 mg/dL
[2023-11-10 15:53] LABS: Acetaminophen, Random <2.0 ug/mL (10.0-30.0)
[2023-11-10 16:33] LABS: Source, Urine Clean Catch
[2023-11-10 16:36] LABS: Appearance, Urine Clear (Clear); Bilirubin, Urine Neg (Neg); Blood, Urine Neg (Neg); Color, Urine Yellow (P-Yellow); Glucose Qualitative, Urine Neg (Neg); Ketones, Urine Neg (Neg); Leukocyte Esterase, Urine 2+ (Neg); Nitrite, Urine Neg (Neg); Protein, Urine Neg (Neg); Specific Gravity, Urine 1.005 (1.003-1.022); Urobilinogen, Urine NORM (Normal)
[2023-11-10 16:43] LABS: Bacteria Few /hpf; Red Blood Cells, Urine 0-2 /hpf (0-2); Squamous Epithelial Cells Few /hpf (Few); Transitional Epithelial Cells Rare /hpf (0-Rare)
[2023-11-10] MEDS ORDERED: LORazepam 2 MG/ML 1ML Injection IM ONE (16:45)
[2023-11-10 16:48] LABS: U Amphetamine Screen Not Detected; U Barbituate Screen Not Detected; U Benzodiazapine Screen DETECTED; U Buprenorphine Screen Not Detected; U Cannabinoids Screen Not Detected; U Cocaine Screen Not Detected; U Methadone Screen Not Detected; U Methamphetamine Screen Not Detected; U Opiates Screen Not Detected; U Oxycodone Screen Not Detected; U Phencyclidine Screen Not Detected
[2023-11-10] MEDS ORDERED: Labetalol HCL 5 MG/ML 4ML Injection (Single Dose) IV PRN (17:20)
[2023-11-10] MEDS ORDERED: LORazepam 2 MG/ML 1ML Injection IV PRN (17:20)
[2023-11-10] MEDS ORDERED: FLU VACC QS2023-24(6MOS UP)/PF 60 MCG/0.5 ML SYRINGE IM SCH (17:20)
[2023-11-10] MEDS ORDERED: Acetaminophen 325 MG TABLET PO PRN (17:20)
[2023-11-10 19:46] VITALS: BP 144/81
[2023-11-10] MEDS ORDERED: TraZODone HCl 50 MG Tab PO SCH (21:00)
[2023-11-10] MEDS ORDERED: Divalproex Sodium 500 MG TABLET.DR PO SCH (21:00)
[2023-11-10] MEDS ORDERED: LORazepam 1 MG Tab PO SCH (21:00)
[2023-11-11] VITALS (7 sets, daily range): BP systolic 140–163; BP diastolic 67–96
--- NOTE | 2023-11-11 00:54 | NUR ---
DURING ADMIT ASSESSMENT, PT WAS APPROPRIATE WITH HER ANSWERS TO QUESTIONS. SHE WAS LABILE AT TIMES, CRYING ABOUT A PASSING - WHEN ASKED - SHE REPORTED "MANY YEARS AGO." PT WAS REDIRECTABLE. PT CURRENTLY CONFUSED, TALKING NON-SENSICAL. BED ALARM ON FOR SAFETY. CALL LIGHT WITHIN REACH. TV ON MUSIC, PER PT REQUEST. FLUIDS AT BEDSIDE.
--- NOTE | 2023-11-11 05:46 | NUR ---
PT ARRIVED TO THE FLOOR AT 1944 LAST NOC. PT WAS MOSTLY LUCID DURING THIS TIME, AND DURING THE ASSESSMENT. PT DID GET TEARFUL DURING THE INITIAL ASSESSMENT WHEN SHE WAS TALKING ABOUT HER . PT HAS BEEN MORE CONFUSED, WITH FLIGHT OF IDEAS THE NIGHT HAS GONE ON. PT HASN'T SLEPT DURING THE NIGHT. PT OFTEN REQUESTING FOOD/FLUIDS - PROVIDED. PT HAS YELLED OUT A COUPLE OF TIMES TONIGHT - BUT HAS BEEN REDIRECTABLE. PT HAS ALSO BEEN CRYING OCCASIONALLY THROUGHOUT THE NIGHT. CALL LIGHT WITHIN REACH. BED ALARM ON. FLUIDS AT BEDSIDE. WILL CONTINUE TO MONITOR UNTIL AM SHIFT CHANGE.
[2023-11-11] MEDS ORDERED: Omeprazole 20 MG CapCR PO SCH (06:00)
[2023-11-11] MEDS ORDERED: Metoprolol Succinate 25 MG TABCR PO SCH (08:00)
[2023-11-11 08:01] LABS: BASOPHILS ABSOLUTE AUTO 0.01 K/mm3 (0.00-0.23); BASOPHILS PERCENT AUTO 0 % (0-2); EOSINOPHILS ABSOLUTE AUTO 0.01 K/mm3 (0.00-0.68); EOSINOPHILS PERCENT AUTO 0 % (0-6); Hematocrit 35.9 % (33.0-51.0); Hemoglobin 12.5 g/dL (11.5-16.0); IMMATURE GRAN ABSOLUTE AUTO 0.01 K/mm3 (0.00-0.10); IMMATURE GRAN PERCENT AUTO 0 % (0-1); LYMPHOCYTES ABSOLUTE AUTO 1.26 K/mm3 (0.84-5.20); LYMPHOCYTES PERCENT AUTO 24 % (21-46); MONOCYTES ABSOLUTE AUTO 0.35 K/mm3 (0.16-1.47); MONOCYTES PERCENT AUTO 7 % (4-13); Mean Corpuscular HGB 31.7 pg (26.0-34.0); Mean Corpuscular HGB Conc 34.8 g/dL (31.5-36.5); Mean Corpuscular Volume 91 fL (80-100); Mean Platelet Volume 8.9 fL (9.1-12.4); NEUTROPHILS ABSOLUTE AUTO 3.63 K/mm3 (1.96-9.15); NEUTROPHILS PERCENT AUTO 69 % (41-73); Platelet Count 250 K/mm3 (150-400); RDW Coefficient Variation 12.4 % (11.7-14.2); RDW Standard Deviation 41.3 fL (35.1-46.3); Red Blood Cell Count 3.94 M/mm3 (3.80-5.20); White Blood Cell Count 5.27 K/mm3 (4.00-11.30)
[2023-11-11 08:28] LABS: Calcium, Blood 8.9 mg/dL (8.5-10.1); Creatinine, Blood 0.48 mg/dL (0.40-1.00); Potassium, Blood 3.7 mmol/L (3.5-5.5); Thyroid Stimulating Hormone 1.29 uIU/mL (0.360-4.800)
[2023-11-11] MEDS ORDERED: Enoxaparin 40 MG/0.4 ML SYR SC SCH (09:00)
[2023-11-11] MEDS ORDERED: AmLODIPine Besylate 5 MG Tab PO SCH (09:00)
[2023-11-11] MEDS ORDERED: ClonazePAM 0.5 MG Tab PO ONE (12:30)
[2023-11-11 14:46] LABS: SARS-Cov-2 (COVID-19) PCR, MMC NEGATIVE (NEGATIVE)
--- NOTE | 2023-11-11 15:30 | NUR ---
Pt. is awake in bed and welcomes my visit. Pt. is awake and alert but displays evidence of confusion. Pt. had no visitors present during my visit. Pt. was chatty. Faclitated a lengthy conversation that often led back to similar themes. Listen with empathy and a calming presence while ccassionally was able to interject some pastoral care. At an oppropriate moment was able to pray with Pt. Pt. continued her conversation even as I left the room.
--- NOTE | 2023-11-11 17:42 | NUR ---
SHIFT SUMMARY Pt remains hyperverbal with various thoughts and words this entire shift. Not always making sense. but words are clear. Pt has not slept this shift. Nursing communication order placed to document how many hours slept per shift. VSS. Denies pain, however Tylenol given due to level of intensity. Indwelling phan in for urinary retention. Awaiting psych bed availability. Will continue to monitor this shift.
[2023-11-11] MEDS ORDERED: LORazepam 2 MG Tab PO SCH (19:00)
[2023-11-11] MEDS ORDERED: TraZODone HCl 100 MG Tab PO ONE (21:10)
--- NOTE | 2023-11-11 22:17 | NUR ---
DR.AARON MICHAUD CALLS. PATIENT IS STILL AWAKE. ORDER RECEIVED FOR AN ADDITIONAL 100MG TRAZADONE ONE TIME DOSE NOW. ONE HOUR LATER PATIENT IS STILL AWAKE. DOES APPEAR TO BE TIRED BUT IS CARRYING ON LONG CONVERSATIONS WITH HERSELF IN ROOM.
--- NOTE | 2023-11-12 03:25 | NUR ---
SHIFT SUMMARY; PATIENT HAS BEEN SLEEPING SINCE 0130 AM. SHE IS RESTING COMFORTABLY EYES CLOSED. LAYING ON HER RIGHT SIDE. EARLIER IN SHIFT SHE WAS TEARY AND HAD FLIGHT OF IDEAS. SHE WAS COOPERATIVE WITH CARE. PATIENTS VITAL SIGNS SHOW B/P ELEVATED AT 147/79 HR 90 RESPS 18 AND NO FEVER 98.7. SHE IS ORIENTED TO SELF. REPORT CALLED TO CEDRICK HOGUE AT [facility]. NO SECURE TRANSPORT AVAILABLE TONIGHT SO WILL HAVE TO BE IN THE AM. CEDRICK HOGUE NOTIFIED VERBALIZED UNDERSTANDING. DOC TO DOC HAS BEEN DONE ALL READY. DID CALL THIS EVENING AND ORDER AN ADDITIONAL 100MG TRAZADONE TO ASSIST PATIENT IN SLEEPING. SHE TOOK THIS MED CRUSHED WITH ICE CREME AND BANANA.
[2023-11-12 04:56] VITALS: BP 117/74
[2023-11-12 07:16] VITALS: BP 106/93
[2023-11-12] MEDS ORDERED: ClonazePAM 0.5 MG Tab PO SCH (09:00)
--- NOTE | 2023-11-12 14:23 | NUR ---
LATE ENTRY DC TO PSYCH FACILITY 1040: SECURE TRANSPORT HERE TO TAKE PT TO PSYCH FACILITY. PIV DC'D WITH CATH TIP INTACT, NO REDNESS OR SWELLING NOTED. F/C TO REMAIN, DRAINED PRIOR TO TRANSPORT, INTACT & PATENT. DC PKT GIVEN TO TRANSPORT PERSONNEL TO GIVE TO FACILITY STAFF UPON ARRIVAL. HOSPITAL SECURITY REQUESTED BY TRANSPORT PERSONNEL TO TAKE PT OUT TO VEHICLE. PT TAKEN TO VEHICLE VIA W/C, SECURITY, ELECTROGALVANIZING MACHINE OPERATOR & PT'S SON ACCOMPANIED TO VEHICLE. TRANSPORT PERSONNEL TO DRIVE.
== END 2023-11-12 10:54 ==
LOC: ER 13:49 → MEDS 13:50
PROVIDERS: Emergency Medicine; Physician Assistant; ADMIT Family Medicine
DX: F31.60 Bipolar disorder, current episode mixed, unspecified (principal); E87.1 Hypo-osmolality and hyponatremia; I10 Essential (primary) hypertension; G47.00 Insomnia, unspecified; K21.9 Gastro-esophageal reflux disease without esophagitis; Z79.899 Other long term (current) drug therapy
CPT/HCPCS: 36415; 51702; 51798; 80048; 80053; 81001; 84443; 85025; 87086; 96372; 99285-25; A9270; G0378; G0480; J1650; J2060; U0002

== ENCOUNTER → 2023-12-08 | Outpatient (CLI) | payer OTHER ==
[~2023-12-08] MED LIST changes: +OLANZAPINE1024 PO
[2023-12-08 13:45] LABS: Sodium, Urine, Random 56 mmol/L (20-110)
[2023-12-08 13:59] LABS: Osmolality, Urine 176 mos/kg (15-1400)
== END | disposition home or self-care (01) ==
LOC: LAB SHORT 08:50
PROVIDERS: Internal Medicine
DX: E87.1 Hypo-osmolality and hyponatremia (principal)
CPT/HCPCS: 83935; 84300

== ENCOUNTER → 2024-02-04 | Outpatient (CLI) | payer OTHER ==
[2024-02-04 19:29] LABS: Bun/Creatinine Ratio 34.6 (12.0-20.0); Creatinine, Blood 0.46 mg/dL (0.40-1.00)
== END ==
LOC: LAB SHORT 17:25 → LAB 17:25
PROVIDERS: Internal Medicine
DX: E87.1 Hypo-osmolality and hyponatremia (principal); I10 Essential (primary) hypertension
CPT/HCPCS: 80048

== ENCOUNTER → 2024-11-07 | Outpatient (CLI) | payer OTHER ==
[2024-11-08 13:24] LABS: Source, Urine Voided
[2024-11-08 14:20] LABS: Appearance, Urine Turbid (Clear); Bilirubin, Urine Neg (Neg); Blood, Urine 4+ (Neg); Color, Urine Yellow (P-Yellow); Glucose Qualitative, Urine Neg (Neg); Ketones, Urine 1+ (Neg); Leukocyte Esterase, Urine 3+ (Neg); Nitrite, Urine Neg (Neg); Protein, Urine 2+ (Neg); Urobilinogen, Urine NORM (Normal)
[2024-11-08 14:29] LABS: Bacteria Mod /hpf; Squamous Epithelial Cells Few /hpf (Few); White Blood Cells, Urine TNTC /hpf (0-5)
== END | disposition home or self-care (01) ==
LOC: LAB 17:00 → LAB SHORT 17:00
PROVIDERS: Family Medicine
DX: N39.0 Urinary tract infection, site not specified (principal)
CPT/HCPCS: 81001; 87077; 87086; 87186

== ENCOUNTER → 2024-11-16 | Outpatient (CLI) | payer OTHER ==
[2024-11-16 11:40] LABS: Source, Urine Voided
[2024-11-16 12:38] LABS: Appearance, Urine Hazy (Clear); Bilirubin, Urine Neg (Neg); Blood, Urine 3+ (Neg); Glucose Qualitative, Urine Neg (Neg); Ketones, Urine Neg (Neg); Leukocyte Esterase, Urine 3+ (Neg); Nitrite, Urine Neg (Neg); Protein, Urine 1+ (Neg); Specific Gravity, Urine 1.005 (1.003-1.022); Urobilinogen, Urine NORM (Normal)
[2024-11-16 12:58] LABS: Color, Urine Pale Yellow (P-Yellow)
[2024-11-16 13:14] LABS: Mucus Light (0-Heavy)
[2024-11-16 13:15] LABS: Bacteria Many /hpf; Red Blood Cells, Urine 0-2 /hpf (0-2); Squamous Epithelial Cells Rare /hpf (Few); White Blood Cells, Urine TNTC /hpf (0-5)
== END ==
LOC: LAB SHORT 11:39 → LAB 11:39
PROVIDERS: Family Medicine
DX: N39.0 Urinary tract infection, site not specified (principal)
CPT/HCPCS: 81001; 87077; 87086; 87186

== ENCOUNTER → 2024-12-15 | Outpatient (CLI) | payer OTHER ==
[2024-12-15 13:31] LABS: Appearance, Urine Cloudy (Clear); Bilirubin, Urine Neg (Neg); Blood, Urine 3+ (Neg); Color, Urine Yellow (P-Yellow); Glucose Qualitative, Urine Neg (Neg); Ketones, Urine Neg (Neg); Leukocyte Esterase, Urine 3+ (Neg); Nitrite, Urine Neg (Neg); Protein, Urine 2+ (Neg); Urobilinogen, Urine NORM (Normal)
[2024-12-15 13:45] LABS: Bacteria Many /hpf; Squamous Epithelial Cells Few /hpf (Few); White Blood Cells, Urine TNTC /hpf (0-5)
== END ==
LOC: LAB 11:55 → LAB SHORT 11:55
PROVIDERS: Family Medicine
DX: N39.0 Urinary tract infection, site not specified (principal)
CPT/HCPCS: 81001; 87077; 87086; 87186

== ENCOUNTER → 2025-01-09 | Outpatient (CLI) | payer OTHER ==
[2025-01-09 18:58] LABS: Source, Urine Voided
[2025-01-09 20:13] LABS: Bacteria Mod /hpf; Squamous Epithelial Cells Few /hpf (Few); White Blood Cells, Urine TNTC /hpf (0-5)
== END ==
LOC: LAB 18:56 → LAB SHORT 18:56
PROVIDERS: Nurse Practitioner Family
DX: R35.0 Frequency of micturition (principal)
CPT/HCPCS: 81015; 87077; 87086; 87186

== ENCOUNTER → 2025-01-30 | Outpatient (CLI) | payer OTHER ==
[2025-01-31 14:53] LABS: Bacteria Many /hpf; Mucus Light (0-Heavy); Red Blood Cells, Urine 0-2 /hpf (0-2); Squamous Epithelial Cells Rare /hpf (Few); White Blood Cells, Urine 25-50 /hpf (0-5)
== END ==
LOC: LAB 20:00 → LAB SHORT 20:00
PROVIDERS: Nurse Practitioner Family
DX: N39.0 Urinary tract infection, site not specified (principal)
CPT/HCPCS: 81015; 87077; 87086; 87186

== ENCOUNTER 2025-02-10 06:33 | Inpatient (IN) | payer OTHER ==
[~2025-02-10] VITALS: Ht 170.2 cm; Wt 99.5 kg
[2025-02-10 06:54] LABS: BASOPHILS ABSOLUTE AUTO 0.04 K/mm3 (0.00-0.23); BASOPHILS PERCENT AUTO 0 % (0-2); EOSINOPHILS PERCENT AUTO 2 % (0-6); Hematocrit 32.8 % (33.0-51.0); Hemoglobin 11.3 g/dL (11.5-16.0); IMMATURE GRAN ABSOLUTE AUTO 0.07 K/mm3 (0.00-0.10); IMMATURE GRAN PERCENT AUTO 1 % (0-1); LYMPHOCYTES ABSOLUTE AUTO 0.96 K/mm3 (0.84-5.20); LYMPHOCYTES PERCENT AUTO 7 % (21-46); MONOCYTES ABSOLUTE AUTO 1.08 K/mm3 (0.16-1.47); MONOCYTES PERCENT AUTO 8 % (4-13); Mean Corpuscular HGB Conc 34.5 g/dL (31.5-36.5); Mean Corpuscular Volume 96 fL (80-100); Mean Platelet Volume 8.5 fL (9.1-12.4); NEUTROPHILS ABSOLUTE AUTO 11.14 K/mm3 (1.96-9.15); NEUTROPHILS PERCENT AUTO 83 % (41-73); Platelet Count 243 K/mm3 (150-400); RDW Coefficient Variation 12.8 % (11.7-14.2); RDW Standard Deviation 45.1 fL (35.1-46.3); Red Blood Cell Count 3.42 M/mm3 (3.80-5.20); White Blood Cell Count 13.49 K/mm3 (4.00-11.30)
[2025-02-10 07:16] LABS: Albumin, Blood 2.9 g/dL (3.4-5.0); Albumin/Globulin Ratio 0.6 (0.8-1.8); Bilirubin, Total 0.5 mg/dL (0.1-1.0); Calcium, Blood 8.9 mg/dL (8.5-10.1); Creatinine, Blood 0.5 mg/dL (0.40-1.00); Globulin, Blood 4.9 g/dL (2.2-4.0); Potassium, Blood 4.4 mmol/L (3.5-5.5); Total Protein, Blood 7.8 g/dL (6.4-8.2)
[2025-02-10] MEDS ORDERED: NS 1,000 ML IV SCH ×2 (08:15→10:00)
[2025-02-10 08:50] LABS: Influenza A, PCR NEGATIVE (NEGATIVE); Influenza B, PCR NEGATIVE (NEGATIVE); Resp Syncytial Virus, PCR NEGATIVE (NEGATIVE); SARS-Cov-2 (COVID-19) PCR, MMC NEGATIVE (NEGATIVE)
[2025-02-10] MEDS ORDERED: Ketorolac Tromethamine 15mg Vial IV ONE (09:20)
[2025-02-10] MEDS ORDERED: Azithromycin 500 MG in NS 250 ML IV ONE (09:20)
[2025-02-10] MEDS ORDERED: CefTRIAXone Sodium 2,000 MG in NS 100 ML IV ONE (09:20)
[2025-02-10 09:54] LABS: Source, Urine Clean Catch
[2025-02-10 09:57] LABS: Bilirubin, Urine Neg (Neg); Blood, Urine 3+ (Neg); Glucose Qualitative, Urine Neg (Neg); Ketones, Urine Neg (Neg); Leukocyte Esterase, Urine 3+ (Neg); Nitrite, Urine Neg (Neg); Protein, Urine Neg (Neg); Urobilinogen, Urine NORM (Normal)
[2025-02-10 10:07] LABS: Color, Urine Pale Yellow (P-Yellow)
[2025-02-10 10:08] LABS: Appearance, Urine Hazy (Clear); Bacteria Mod /hpf; Squamous Epithelial Cells Few /hpf (Few)
[2025-02-10] MEDS ORDERED: Labetalol HCL 5 MG/ML 4ML Injection (Single Dose) IV STA (10:24)
[2025-02-10] MEDS ORDERED: Meropenem 1,000 MG in NS 100 ML IV SCH (10:42)
[2025-02-10] MEDS ORDERED: Labetalol HCL 5 MG/ML 4ML Injection (Single Dose) IV PRN (11:00)
[2025-02-10] MEDS ORDERED: ACET500 PO ×2 (11:35→17:16)
[2025-02-10] MEDS ORDERED: BENZONATATE100 MG PO (11:37)
[2025-02-10] MEDS ORDERED: DESITIN DAILY136 GM (11:40)
[2025-02-10] MEDS ORDERED: DIVA250EC PO (11:44)
[2025-02-10] MEDS ORDERED: FLUT.05NI (11:46)
[2025-02-10] MEDS ORDERED: FURO40 PO (11:48)
[2025-02-10] MEDS ORDERED: GABA300 PO (11:48)
[2025-02-10] MEDS ORDERED: GUAI600T33 PO (11:49)
[2025-02-10] MEDS ORDERED: LOPE2C PO (11:51)
[2025-02-10] MEDS ORDERED: MYRBETRIQ25 MG PO (11:57)
[2025-02-10] MEDS ORDERED: Milk Of Ma400 MG/5 M PO (11:57)
[2025-02-10] MEDS ORDERED: Nitrofurantoin100 M1 PO (11:59)
[2025-02-10] MEDS ORDERED: NYAMYC1513 TOP (12:00)
[2025-02-10] MEDS ORDERED: MIRALAX17 GM PO (12:01)
[2025-02-10] MEDS ORDERED: KLOR-CON 1010 ME9 PO (12:05)
[2025-02-10] MEDS ORDERED: QUETIAPINE FUMA50 M2 PO (12:08)
[2025-02-10] MEDS ORDERED: Seroquel Xr50 MG PO (12:08)
[2025-02-10] MEDS ORDERED: RISP3 PO (12:13)
[2025-02-10] MEDS ORDERED: RISP4 PO (12:14)
[2025-02-10] MEDS ORDERED: SENN187 PO ×2 (12:19→17:46)
[2025-02-10] MEDS ORDERED: SODCHL1 PO (12:20)
[2025-02-10] MEDS ORDERED: TIZA4 PO (12:23)
[2025-02-10 14:15] VITALS: BP 157/77
[2025-02-10] MEDS ORDERED: MYLANTA MAXIMUM10 ML PO (17:18)
[2025-02-10] MEDS ORDERED: ASPERCREME LIDO73 ML TOP (17:19)
[2025-02-10] MEDS ORDERED: CRANBERRY500 M1 PO (17:22)
[2025-02-10] MEDS ORDERED: NASAL SPRAY88 ML (17:24)
[2025-02-10] MEDS ORDERED: CENTRUM SILVER1 EAC2 PO (17:33)
[2025-02-10] MEDS ORDERED: NYSTATIN15 GM TOP (17:36)
[2025-02-10] MEDS ORDERED: C COMPLEX1000 M1 PO (17:47)
[2025-02-10] MEDS ORDERED: THERA-D2000 UNIT PO (17:49)
[2025-02-10] MEDS ORDERED: Benzonatate 100 MG Cap PO PRN (19:55)
[2025-02-10] MEDS ORDERED: QUEtiapine Fumarate 50 MG TAB PO PRN (19:55)
[2025-02-10] MEDS ORDERED: Magnesium Hydroxide Conc 10 ML UDC PO PRN (19:55)
--- NOTE | 2025-02-10 19:59 | NUR ---
SHIFT SUMMARY PT A&O TO SELF AND FAMILY. PT CALLS OUT FREQ/MAKES NEEDS KNOWN PT ADMITTED DUE TO SEPSIS. PT IN CONTACT FOR ESBL IN URINE. ADMIT ASSESSMENT COMPLETE. PT HAS SCD'S IN PLACE. PT HAS ACHS BLOOD SUGAR ORDERS, PT ORIENTED TO FALL PRECAUTIONS/CALL LIGHT/UNIT. PT REPORTS USES WHEELCHAIR AT BASE. PT HAS PERWICK IN PLACE, PT REPORTS BURNING WHEN URINATING. PT HAS NS RUNNING AT 125ML/HR. PT REPORTS SOME PAIN, REPORTED TO NIGHT RN TO CALL DOC TO UPDATE MEDS. DRILLING MACHINE RUNNER RECONSILED MEDS, FINISHED AT SHIFT CHANGE. SON CAME IN DURING SHIFT TO VISIT, PT IN BED BED IN LOWEST POSITION, CALL LIGHT IN REACH, PT ON TELE.
[2025-02-10] MEDS ORDERED: TiZANidine HCl 4 MG Tab PO PRN (20:00)
[2025-02-10] MEDS ORDERED: Mag Hydrox/AL Hydrox/Simeth 30 ML UDC PO PRN (20:00)
[2025-02-10] MEDS ORDERED: LORazepam 1 MG Tab PO SCH (20:00)
[2025-02-10] MEDS ORDERED: Loperamide HCl 2 MG Cap PO PRN (20:00)
[2025-02-10] MEDS ORDERED: Sennosides 8.6 MG Tab PO PRN ×2 (20:05)
[2025-02-10] MEDS ORDERED: Acetaminophen 500 MG Tab PO PRN (20:05)
[2025-02-10 20:12] VITALS: BP 156/77
[2025-02-10] MEDS ORDERED: Polyethylene Glycol 3350 17 gm PO PRN (20:25)
[2025-02-10] MEDS ORDERED: GuaiFENesin 600 MG TabCR PO PRN (20:25)
[2025-02-10] MEDS ORDERED: Saline Nasal Spray 45 ML PRN (20:30)
[2025-02-10] MEDS ORDERED: Lidocaine 5% Ointment 35 gm TOP PRN (20:50)
[2025-02-10] MEDS ORDERED: QUEtiapine Fumarate 50 MG TAB PO SCH (21:00)
[2025-02-10] MEDS ORDERED: Divalproex Sodium 250 MG TABLET.DR PO SCH (21:00)
[2025-02-10] MEDS ORDERED: Fluticasone 0.05% Nasal Spray SCH (21:00)
[2025-02-10] MEDS ORDERED: RisperiDONE 1 MG Tab PO SCH (21:00)
[2025-02-10] MEDS ORDERED: Gabapentin 300 MG Cap PO SCH (21:00)
[2025-02-10 23:22] VITALS: BP 112/64
[2025-02-11 03:47] VITALS: BP 128/82
--- NOTE | 2025-02-11 04:56 | NUR ---
SHIFT SUMMARY NOC PT A/O X 2-3. CONFUSED BUT COOPERATIVE WITH CARE. VSS. HOME RX REORDERED, 2100 DOSE OF SEROQUEL HELD DUE TO LETHARGY. PT HAS PUREWICK IN PLACE. ON TELE SINUS TACH IN LOW 100'S, RHYTHIM STRIP INTERPRETED AND VERIFIED BY RN. PT HAS NS INFUSING @ 125 ML/HR. IV ABX PER EMAR FOR UTI. PT CAREGIVER FROM [facility] CALLED FOR UPDATE ON PT. PT ON CONTACT ISOLATION FOR ESBL IN URINE. PT CURRENTLY RESTING WITH BED ALARM ON, BED IN LOWEST POSITION, AND CALL LIGHT WITHIN REACH.
[2025-02-11 05:19] LABS: Hematocrit 32.8 % (33.0-51.0); Hemoglobin 10.9 g/dL (11.5-16.0); Mean Corpuscular HGB Conc 33.2 g/dL (31.5-36.5); Mean Corpuscular Volume 99 fL (80-100); Mean Platelet Volume 8.7 fL (9.1-12.4); Platelet Count 241 K/mm3 (150-400); RDW Coefficient Variation 13.1 % (11.7-14.2); RDW Standard Deviation 47.8 fL (35.1-46.3); White Blood Cell Count 6.62 K/mm3 (4.00-11.30)
[2025-02-11 05:51] LABS: Bun/Creatinine Ratio 11.9 (12.0-20.0); Calcium, Blood 8.5 mg/dL (8.5-10.1); Creatinine, Blood 0.5 mg/dL (0.40-1.00); Potassium, Blood 3.8 mmol/L (3.5-5.5)
[2025-02-11] MEDS ORDERED: Omeprazole 20 MG CapCR PO SCH (06:00)
[2025-02-11 07:11] VITALS: BP 131/64
[2025-02-11] MEDS ORDERED: Trospium Chloride 20 MG Tab PO SCH (09:00)
[2025-02-11] MEDS ORDERED: Cholecalciferol 1000 Unit Tablet (=25MCG) PO SCH (09:00)
[2025-02-11] MEDS ORDERED: Cranberry Extract 250MG W/30 MG Vitamin C Tab PO SCH (09:00)
[2025-02-11] MEDS ORDERED: Multivitamins/Minerals 1 Tab PO SCH (09:00)
[2025-02-11] MEDS ORDERED: Ascorbic Acid 500 MG Tab PO SCH (09:00)
[2025-02-11] MEDS ORDERED: Sodium Chloride 1 GM TAB PO SCH (09:00)
[2025-02-11] MEDS ORDERED: RisperiDONE 1 MG Tab PO SCH (09:00)
[2025-02-11] MEDS ORDERED: Enoxaparin 40 MG/0.4 ML SYR SC SCH (09:00)
[2025-02-11] MEDS ORDERED: Doxycycline Hyclate 100 MG TAB PO SCH (09:00)
[2025-02-11 11:52] VITALS: BP 145/81
[2025-02-11 12:12] VITALS: BP 136/97
[2025-02-11 16:21] VITALS: BP 151/71
--- NOTE | 2025-02-11 17:32 | NUR ---
SHIFT SUMMARY PT IS A/OX3, CONFUSION AND FORGETFUL AT TIMES. NO ACUTE EVENTS THROUGHOUT THIS SHIFT. CONTINUING IV ANTIBIOTICS. ON TELE RUNNING SINUS TACH WITH PAC'S IN THE 100'S. PT'S SON AND DAUGHTER AT BEDSIDE THROUGHOUT THIS SHIFT.
[2025-02-11 19:41] VITALS: BP 140/71
[2025-02-11] MEDS ORDERED: Dextran/Hypromellose/Glycerin 15 DROP/ML BTL BOTHEYES PRN (20:35)
[2025-02-12 00:01] VITALS: BP 123/64
[2025-02-12] MEDS ORDERED: NS 250 ML IV PRN (00:10)
[2025-02-12 04:01] VITALS: BP 139/69
[2025-02-12] MEDS ORDERED: Miconazole Nitrate 2% 85 GM PWD TOP SCH (05:40)
[2025-02-12] MEDS ORDERED: ZINC OXIDE/PETROLATUM, YELLOW 1 APPLIC/71 GM PASTE TOP SCH (05:45)
--- NOTE | 2025-02-12 06:07 | NUR ---
SHIFT SUMMARY NOC PT A/O X 3. CONFUSED AND FORGETFUL AT TIMES. VSS. PT HAD C/O OF DRY EYES AT DURING ASSESSMENT AND ARTIFICIAL TEARS ORDERED. BEDTIME DOSE OF SEROQUEL HELD DUE TO PT LETHARGY AFTER RECEIVING ATIVAN @ 1999. PT ON TELE SINUS TACH IN LOW 100'S, RHYTHM STRIP VERIFIED BY RN. ERWIN IN PLACE WITH HAZY URINE, PT STILL HAS C/O OF DYSURIA AND BURNING. PT CHRONIC PAIN BEING MANAGED PER EMAR. IV ABX PER EMAR. PT CURRENTLY RESTIN WITH BED IN LOWEST POSITION, AND CALL LIGHT WITHIN REACH.
[2025-02-12 07:07] VITALS: BP 141/73
[2025-02-12] MEDS ORDERED: Furosemide 40 MG Tab PO SCH (09:00)
[2025-02-12] MEDS ORDERED: Potassium Chloride 10 Meq Tablet SA PO SCH (09:00)
[2025-02-12 12:11] VITALS: BP 145/80
[2025-02-12 15:55] VITALS: BP 145/72
--- NOTE | 2025-02-12 19:22 | NUR ---
PT MOSTLY PLEASANT BUT CONFUSED TODAY, X2-3, SON IN AND HAD ARGUMENTS WITH DR CUNHA, SECURITY WAS CALLED. EVENTUALLY POLICE CALLED. SON NOT ALLOWED BACK IN HOSP. PT CONTINUES TO BE PLEASANT, IS OCCATIONALLY CALLING OUT. LUNGS CRACKLES BASES, +2 EDEMA. LIGHT TEMP THIS AFT. TYLENOL ADMIN. NO OTHER NEW CONCERNS NOTED. BED INL OW POSITIOIN, CALL LITE IN REACH, CALLS APPROP
[2025-02-12 19:23] VITALS: BP 141/75
[2025-02-13 00:10] VITALS: BP 117/73
[2025-02-13 04:24] VITALS: BP 123/65
--- NOTE | 2025-02-13 05:25 | NUR ---
Shift Summary No acute changes. Pt was anxious and needy at the start of the shift, after PM meds she slept well t/o the night. Purewick in place for voids, attends changed PRN, Q2 turns. She is AOx2-3, often mumbling incoherently when tired and lethargic. No fever this shift, medicated x1 with tylenol at 2052 for generalized pain. On tele running SR, no events.
[2025-02-13 07:51] VITALS: BP 137/83
[2025-02-13 16:12] VITALS: BP 150/96
--- NOTE | 2025-02-13 17:33 | NUR ---
ASSUMED CARE OF PT. PT HAS BEEN A/O X 4 TODAY AND VERY PLEASENT CALLING OUT FOR ME EVERY 10 MIN OR SO FOR SOMETHING TO DRINK OR EAT OR JUST TALK. PT HAS BEEN VERY PLEASENT AND COOPERATIVE WITH CARE. CALL LIGHT WITHIN REACH, PT ABLE TO MAKE NEEDS KNOWN. POWER GLIDE PLACED TO LEFT FOREARM BY RN. PT KARLA VERY WELL. PT REPOSITOINED Q 2. PURWIC IN PLACE.
--- NOTE | 2025-02-13 19:13 | NUR ---
WAS SPEAKING WITH PT AND DAUGHTER BRENDA WAS CALLED, HAD DISCUSSION ABOUT ALLOWING SON BACK IN THE HOSPITAL BUT I LET THE FAMILY KNOW IT WAS OUT OF MY CONTROL AND HE WOULDNT BE ALLOWED IN. PT SON DELON BEGAN YELLING OVER THE PHONE AND STATED HE WOULD BE COMING TOMORROW. I HEARD TRYING TO EXPLAIN THAT HE WOULD BE ARRESTED BUT SON JUST GREW MORE UPSET AND THE PHONE WAS HUNG UP BY DAUGHTER BRENDA. I SPOKE AND CONSOLED PT ABOUT SON NOT BEING ALLOWED TO COME UP PT WAS UPSET AND DIDNT SEEM TO UNDERSTAND WHY THAT WAS THE CASE. I TRIED MY BEST TO EXPLAIN THE SITUATION.
[2025-02-13 19:29] VITALS: BP 132/67
[2025-02-13] MEDS ORDERED: Lactobacil 2-S.Thermo-Bifido 1 1 Cap PO SCH (21:00)
[2025-02-14 01:07] VITALS: BP 127/79
--- NOTE | 2025-02-14 04:37 | NUR ---
SHIFT SUMMARY: PT AOX 2-3 TO PERSON, PLACE, AND SELF. SITUATION AT TIMES. MENTATION SEEMS TO WAX AND WANE. FORGETFUL AND ANXIOUS. EVERY TOUCH OR INCONVENIENCE ILLICITS AN EXCESSIVE RESPONSE. PT COMPLAINS OF SO MUCH PAIN AND MISSERY ONE MINUTE AND THEN IS ASLEEP THE NEXT. PT SLEPT OKAY THROUGH THE NIGHT. WOKE UP INTERMITTENTLY WIT COMPLAINTS OF PAIN AND DISCOMFORT. PT HAD SEVERAL UNMEASURED VOIDS BUT ABDOMEN WAS STILL DISTENDED. BLADDER SCAN REVEALED 999ML+ AND PROVIDER NOTIFIED. STRAIGHT CATH PERFORMED. PT WAS ABLE TO VOID A LITTLE AND ~550ML RETRIEVED FROM STRAIGHT CATH DESPITE ATTEMPTING TO GET MORE. RE BLADDER SCAN SHOWED STILL EXCESSIVE AMMOUNTS BUT PT STATED RELIEF AND THEN FELL BACK ASLEEP. PT STILL EXTREMELY ANXIOUS AND NOT UNDERSTNANDING OF THE PLAN. PT IN BED SLEEPING, BED IN LOWEST POSITON, CALL LIGHT IN REACH. CONTINUING CARE.
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
[2025-02-14 06:42] VITALS: BP 145/90
[2025-02-14 07:32] VITALS: BP 131/82
[2025-02-14] MEDS ORDERED: Calcium Carbonate 500 MG Tab Chew PO PRN (09:10)
[2025-02-14 16:56] VITALS: BP 136/74
--- NOTE | 2025-02-14 18:25 | NUR ---
SHIFT SUMMARY PT A&OX2 AND CONFUSED, VSS, BEDRIDDEN AT THIS TIME, TOLERATING PO, VOIDING, AND DENIED PAIN. INSURANCE AUTH PENDING FOR PLACEMENT. NO ACUTE CHANGES THIS SHIFT. CALL LIGHT WITHIN REACH AND BED ALARM ON FOR SAFETY.
[2025-02-14 20:22] VITALS: BP 151/82
[2025-02-14 23:25] VITALS: BP 128/80
[2025-02-15 03:20] VITALS: BP 108/71
--- NOTE | 2025-02-15 05:39 | NUR ---
SHIFT SUMMARY: PT AOX2-3 TO PERSON, PLACE, SELF, SOMETIMES SITUATION. EASILY REORIENTED BUT VERY CONFUSED MOST OF THE TIME. AGITATED BUT POLITE. DOES NOT CALL APPROPRIATELY BUT IS ABLE TO MAKE NEEDS KNOWN. INCONT TO STOOL AND VOIDS, CHECKED REGULARLY AND STILL HAS MASSIVE VOIDS REQUIRING MULTIPLE BED CHANGES. STATES THAT THE PURE WICK IS TOO UNCOMFORTABLE. PT IS COOPERATIVE IN CARE BUT CAN BE VERY AGITATED AT TIMES. ATTENDS IN PLACE. TOLERATING MEDICATIONS WELL. NO ACUTE EVENTS OVERNIGHT. PT IN BED SLEEPING, BED IN LOWEST POSITION, CALL LIGHT IN REACH. CONTINUING CARE.
[2025-02-15 08:02] VITALS: BP 132/71
[2025-02-15] MEDS ORDERED: MEROPENEM1 G1 IV (08:25)
[2025-02-15] MEDS ORDERED: Calcium Carbon500 MG PO (08:25)
[2025-02-15] MEDS ORDERED: VISBIOME 112.51 EACH PO (08:26)
[2025-02-15] MEDS ORDERED: REMEDY SPECIAL113 GM TOP (08:27)
[2025-02-15 11:01] VITALS: BP 100/68
--- NOTE | 2025-02-15 12:43 | NUR ---
DISCHARGE NOTE PT D/C TO SNF AT 1145. PT A&OX2, VSS, AMB W/ ASSIST TO CHAIR, TOLERATING PO, VOIDING, AND DENIED PAIN. BELONGINGS WERE RETURNED. DISCHARGE PACKET GIVEN TO TRANSPORT. PT ESCOURTED OUT VIA W/C BY TRANSPORT. THIS RN CALLED [facility] AND GAVE REPORT TO LENNIE BRICE. FAMILY NOTIFIED OF D/C.
== END 2025-02-15 11:43 | DRG 871 ==
LOC: ER 06:33 → ERHOLD 09:49 → MEDS 09:49
PROVIDERS: Emergency Medicine; Student in an Organized Health Care Education/Training Program; ADMIT Internal Medicine
DX: A41.59 Other Gram-negative sepsis (principal); J18.9 Pneumonia, unspecified organism; N39.0 Urinary tract infection, site not specified; E87.1 Hypo-osmolality and hyponatremia; Z66 Do not resuscitate; F31.9 Bipolar disorder, unspecified; K21.9 Gastro-esophageal reflux disease without esophagitis; I10 Essential (primary) hypertension; B96.1 Klebsiella pneumoniae [K. pneumoniae] as the cause of diseases classified elsewhere; M54.9 Dorsalgia, unspecified; G89.29 Other chronic pain; G47.33 Obstructive sleep apnea (adult) (pediatric); R74.01 Elevation of levels of liver transaminase levels; F03.90 Unspecified dementia, unspecified severity, without behavioral disturbance, psychotic disturbance, mood disturbance, and anxiety; Z87.09 Personal history of other diseases of the respiratory system; Z88.8 Allergy status to other drugs, medicaments and biological substances; Z79.899 Other long term (current) drug therapy; Z90.710 Acquired absence of both cervix and uterus; Z98.890 Other specified postprocedural states; Z87.891 Personal history of nicotine dependence
CPT/HCPCS: 0241U; 36415; 71045; 71275; 74177; 80048; 80053; 81001; 83605; 83880; 84484; 85025; 85027; 87040; 87077; 87086; 87186; 93005; 93010; 93306; 99285-25; A9270; J0456; J0696; J1650; J1885; J2185; J7030; J7050; Q9967

== ENCOUNTER 2025-04-17 13:33 | Inpatient (IN) | payer OTHER ==
[~2025-04-17] VITALS: Ht 170.2 cm; Wt 96.4 kg
[~2025-04-17 13:33] MED LIST changes: +ASPERCREME LIDO73 ML TOP; +BENZONATATE100 MG PO; +C COMPLEX1000 M1 PO; +CENTRUM SILVER1 EAC2 PO; +CRANBERRY500 M1 PO; +Calcium Carbon500 MG PO; +DESITIN DAILY136 GM; +FLUT.05NI; +FURO40 PO; +GABA300 PO; +KLOR-CON 1010 ME9 PO; +LOPE2C PO; +MEROPENEM1 G1 IV; +MIRALAX17 GM PO; +MYLANTA MAXIMUM10 ML PO; +MYRBETRIQ25 MG PO; +Milk Of Ma400 MG/5 M PO; +NASAL SPRAY88 ML; +NYAMYC1513 TOP; +NYSTATIN15 GM TOP; +Nitrofurantoin100 M1 PO; +QUETIAPINE FUMA50 M2 PO; +REMEDY SPECIAL113 GM TOP; +RISP3 PO; +RISP4 PO; +SENN187 PO; +SODCHL1 PO; +Seroquel Xr50 MG PO; +THERA-D2000 UNIT PO; +TIZA4 PO
[2025-04-17 14:12] LABS: Source, Urine Straight Cath
[2025-04-17 14:15] LABS: Bilirubin, Urine Neg (Neg); Glucose Qualitative, Urine Neg (Neg); Ketones, Urine 1+ (Neg); Leukocyte Esterase, Urine 3+ (Neg); Protein, Urine 3+ (Neg); Specific Gravity, Urine 1.015 (1.003-1.022); Urobilinogen, Urine NORM (Normal)
[2025-04-17 14:28] LABS: BASOPHILS ABSOLUTE AUTO 0.02 K/mm3 (0.00-0.23); BASOPHILS PERCENT AUTO 0 % (0-2); EOSINOPHILS ABSOLUTE AUTO 0.05 K/mm3 (0.00-0.68); EOSINOPHILS PERCENT AUTO 0 % (0-6); Hematocrit 31.7 % (33.0-51.0); Hemoglobin 10.8 g/dL (11.5-16.0); IMMATURE GRAN ABSOLUTE AUTO 0.04 K/mm3 (0.00-0.10); IMMATURE GRAN PERCENT AUTO 0 % (0-1); LYMPHOCYTES ABSOLUTE AUTO 2.31 K/mm3 (0.84-5.20); LYMPHOCYTES PERCENT AUTO 20 % (21-46); MONOCYTES ABSOLUTE AUTO 0.82 K/mm3 (0.16-1.47); MONOCYTES PERCENT AUTO 7 % (4-13); Mean Corpuscular HGB Conc 34.1 g/dL (31.5-36.5); Mean Corpuscular Volume 96 fL (80-100); NEUTROPHILS ABSOLUTE AUTO 8.44 K/mm3 (1.96-9.15); NEUTROPHILS PERCENT AUTO 72 % (41-73); NRBC ABSOLUTE 0.00 K/mm3 (0.00-0.02); NRBC Auto 0.0 /100 WBC (0.0-0.2); Platelet Count 265 K/mm3 (150-400); RDW Coefficient Variation 12.6 % (11.7-14.2); RDW Standard Deviation 44.3 fL (35.1-46.3)
[2025-04-17 14:29] LABS: Color, Urine Pale Yellow (P-Yellow)
[2025-04-17 14:30] LABS: White Blood Cells, Urine TNTC /hpf (0-5)
[2025-04-17 14:31] LABS: Red Blood Cells, Urine TNTC /hpf (0-2)
[2025-04-17 14:38] LABS: Alanine Aminotransfer (ALT/SGP 22.0 U/L (12-78); Albumin, Blood 3.0 g/dL (3.4-5.0); Albumin/Globulin Ratio 0.7 (0.8-1.8); Anion Gap 7.0 mmol/L (3-11); Aspartate Aminotrans (AST/SGOT 14.0 U/L (12-37); Bilirubin, Total 0.4 mg/dL (0.1-1.0); Blood Urea Nitrogen 6.0 mg/dL (8-24); CO2, Blood 27.0 mmol/L (21-32); Calcium, Blood 8.5 mg/dL (8.5-10.1); Chloride, Blood 102.0 mmol/L (98-108); Creatinine, Blood 0.85 mg/dL (0.40-1.00); Globulin, Blood 4.1 g/dL (2.2-4.0); Glucose, Blood 119.0 mg/dL (70-99); Potassium, Blood 3.2 mmol/L (3.5-5.5); Sodium, Blood 133.0 mmol/L (136-145); Total Protein, Blood 7.1 g/dL (6.4-8.2)
[2025-04-17] MEDS ORDERED: CefTRIAXone Sodium 1,000 MG in NS 50 ML IV ONE (14:55)
[2025-04-17 17:38] VITALS: BP 109/66
[2025-04-17] MEDS ORDERED: Meropenem 2,000 MG in NS 250 ML IV SCH (18:00)
--- NOTE | 2025-04-17 18:34 | NUR ---
PT ARRIVED TO UNIT FROM ED VIA JULISSA @ 1720. PT IS A&Ox4 AND ABLE TO MAKE NEEDS KNOWN, BUT DOES SHOW SOME CONFUSION. SHE IS ON RA W/O2 SATS > 90%. SHE HAS A PUREWICK IN PLACE. PG PLACED TO MARYANNE, LABS DRAWN, AND LR AND IV ABX STARTED PER EMAR. NO NEEDS OR CONCERNS NOTED @ THIS TIME. BED IN LOW POSITION, BED ALARM ON, AND CALL LIGHT IN REACH.
[2025-04-17 20:04] VITALS: BP 131/65
[2025-04-18 00:11] VITALS: BP 157/94
[2025-04-18] MEDS ORDERED: SODCHL1 PO (02:57)
[2025-04-18] MEDS ORDERED: Ativan1 MG PO (02:58)
[2025-04-18] MEDS ORDERED: DIVALPROEX SOD250 M2 PO (03:00)
[2025-04-18] MEDS ORDERED: K-Dur10 MEQ PO (03:10)
[2025-04-18] MEDS ORDERED: FUROSEMIDE40 MG PO (03:47)
[2025-04-18] MEDS ORDERED: CALCIUM CARBON200 M1 PO (03:51)
[2025-04-18 04:02] VITALS: BP 159/86
[2025-04-18 04:06] LABS: BASOPHILS ABSOLUTE AUTO 0.01 K/mm3 (0.00-0.23); BASOPHILS PERCENT AUTO 0 % (0-2); EOSINOPHILS ABSOLUTE AUTO 0.10 K/mm3 (0.00-0.68); EOSINOPHILS PERCENT AUTO 1 % (0-6); Hematocrit 31.7 % (33.0-51.0); Hemoglobin 10.8 g/dL (11.5-16.0); IMMATURE GRAN ABSOLUTE AUTO 0.02 K/mm3 (0.00-0.10); IMMATURE GRAN PERCENT AUTO 0 % (0-1); LYMPHOCYTES ABSOLUTE AUTO 1.01 K/mm3 (0.84-5.20); LYMPHOCYTES PERCENT AUTO 13 % (21-46); MONOCYTES ABSOLUTE AUTO 0.73 K/mm3 (0.16-1.47); MONOCYTES PERCENT AUTO 10 % (4-13); Mean Corpuscular HGB Conc 34.1 g/dL (31.5-36.5); Mean Corpuscular Volume 94 fL (80-100); NEUTROPHILS ABSOLUTE AUTO 5.81 K/mm3 (1.96-9.15); NEUTROPHILS PERCENT AUTO 76 % (41-73); NRBC ABSOLUTE 0.00 K/mm3 (0.00-0.02); NRBC Auto 0.0 /100 WBC (0.0-0.2); Platelet Count 233 K/mm3 (150-400); RDW Coefficient Variation 12.6 % (11.7-14.2); RDW Standard Deviation 43.6 fL (35.1-46.3)
[2025-04-18 04:25] LABS: Alanine Aminotransfer (ALT/SGP 19.0 U/L (12-78); Albumin, Blood 2.9 g/dL (3.4-5.0); Albumin/Globulin Ratio 0.8 (0.8-1.8); Anion Gap 4.0 mmol/L (3-11); Aspartate Aminotrans (AST/SGOT 12.0 U/L (12-37); Bilirubin, Total 0.4 mg/dL (0.1-1.0); Blood Urea Nitrogen 3.0 mg/dL (8-24); CO2, Blood 31.0 mmol/L (21-32); Calcium, Blood 8.1 mg/dL (8.5-10.1); Chloride, Blood 106.0 mmol/L (98-108); Creatinine, Blood 0.55 mg/dL (0.40-1.00); Globulin, Blood 3.8 g/dL (2.2-4.0); Glucose, Blood 103.0 mg/dL (70-99); Potassium, Blood 2.8 mmol/L (3.5-5.5); Sodium, Blood 138.0 mmol/L (136-145); Total Protein, Blood 6.7 g/dL (6.4-8.2)
[2025-04-18] MEDS ORDERED: Potassium Chloride 10 Meq Tablet SA PO ONE (04:36)
--- NOTE | 2025-04-18 05:17 | NUR ---
UPDATE PTs LABS RESULTED WITH A POTASSIUM OF 2.8. DR CASTELLON NOTIFIED AND ORAL POTASSIUM ORDERED. THIS NURSE WENT TO GIVE PT MEDICATION BUT PT REFUSED UNTIL THE PILLS WERE CLEARED WITH SON, CORKY, AND HER PCP DR. ROSARIO. THIS NURSE ATTEMPTED TO CALL SON WITH NO ANSWER. WILL TRY AGAIN SOON. NOTIFIED OF SITUATION. CURRENTLY PT REMAINS ON TELE ST LOW 100s. PT PLEASANTLY CONFUSED HOWEVER ALERT. PT DID WELL THROUGHOUT NIGHT BUT WAS CLEARLY SUNDOWNING ALL NIGHT. PT C/O SIGNIFICANT PAIN IN HEAD, SHOULDER AND LLE. MD NOTIFIED EARLY IN THE NIGHT AND TRAMADOL ORDERED AND GIVEN WITH GOOD RELIEF. PT STATES SHE ONLY FELL BUT STATES THAT SHE DID NOT HIT HER HEAD. UNCLEAR IF THIS IS TRUE D/T HER TELLING ED THAT SHE DID IN FACT HIT HER HEAD WITH THE FALL. NO FURTHER QUESTIONS OR CONCERNS AT THIS TIME. WILL CONTINUE WITH PLAN OF CARE.
[2025-04-18 05:47] LABS: Magnesium, Blood 1.7 mg/dL (1.6-2.4)
[2025-04-18 07:20] VITALS: BP 161/76
[2025-04-18] MEDS ORDERED: Cholecalciferol 1000 Unit Tablet (=25MCG) PO SCH (09:00)
[2025-04-18] MEDS ORDERED: Enoxaparin 40 MG/0.4 ML SYR SC SCH (09:00)
[2025-04-18 11:54] VITALS: BP 150/91
[2025-04-18 12:55] LABS: Anion Gap 4.0 mmol/L (3-11); Blood Urea Nitrogen 5.0 mg/dL (8-24); CO2, Blood 33.0 mmol/L (21-32); Calcium, Blood 8.9 mg/dL (8.5-10.1); Chloride, Blood 103.0 mmol/L (98-108); Creatinine, Blood 0.51 mg/dL (0.40-1.00); Glucose, Blood 114.0 mg/dL (70-99); Magnesium, Blood 1.8 mg/dL (1.6-2.4); Potassium, Blood 3.5 mmol/L (3.5-5.5); Sodium, Blood 136.0 mmol/L (136-145)
--- NOTE | 2025-04-18 13:18 | NUR ---
PT IS A&Ox4 AND ABLE TO MAKE NEEDS KNOWN, BUT SHE HAS MOMENTS OF CONFUSION. PT DOES NOT USE CALL LIGHT APPROPRIATELY. SHE IS ON RA W/O2 SATS > 90%. PUREWICK IN PLACE WITH CLOUDY YELLOW URINE COLLECTING. PT ASKING TO SPEAK TO MD THROUGHOUT THE SHIFT. NO NEEDS OR CONCERNS NOTED @ THIS TIME. BED IN LOW POSITION, BED ALARM ON, CALL LIGHT AND PERSONAL BELONGINGS IN REACH.
--- NOTE | 2025-04-18 15:49 | NUR ---
PT REFUSED AFTERNOON VS. WILL TRY AGAIN WHEN PT IS MORE AWAKE.
[2025-04-18 17:33] VITALS: BP 159/77; BP 195/77
--- NOTE | 2025-04-18 18:22 | NUR ---
PT TRANSFERRED FROM PCU 1 TO ROOM 344, ORIENTED TO ROOM, CALL LIGHT. PLEASANTLY CONFUSED, DIRECTABLE. SET BED ALARM. PT STATES SHE HAS A HEADACHE AND GEN BODY ACHE. WILL MEDICATE FOR PAIN
[2025-04-18 19:28] VITALS: BP 151/90
[2025-04-19] MEDS ORDERED: NS 250 ML IV PRN (01:05)
[2025-04-19 02:51] VITALS: BP 140/70
--- NOTE | 2025-04-19 06:19 | NUR ---
SHIFT SUMMARY PT HERE FOR SEPSIS 2NDARY TO UTI. SHE HAS BEEN RESTING COMFORTABLY IN BED OVERNIGHT. SHE HAS BEEN AOX4, CALM AND COOPERATIVE. PT HAS C/O GENERALIZED PAIN OVERNIGHT, WITH REST AND MEDICATIONS RELIEVING IT. PT HAS BEEN IN BED ENTIRE NIGHT, BASELINE HAS BEEN 1PA UP OOB. PT HAS BEEN INCONTINENT OF URINE, W/ PUREWIK ON. NO BMS OVERNIGHT. PT HAS HAD NO OTHER COMPLAINTS OVERNIGHT. NO ACUTE EVENTS OVERNIGHT.
[2025-04-19 06:37] LABS: BASOPHILS ABSOLUTE AUTO 0.04 K/mm3 (0.00-0.23); BASOPHILS PERCENT AUTO 1 % (0-2); EOSINOPHILS ABSOLUTE AUTO 0.24 K/mm3 (0.00-0.68); EOSINOPHILS PERCENT AUTO 4 % (0-6); Hematocrit 31.5 % (33.0-51.0); Hemoglobin 10.8 g/dL (11.5-16.0); IMMATURE GRAN ABSOLUTE AUTO 0.02 K/mm3 (0.00-0.10); IMMATURE GRAN PERCENT AUTO 0 % (0-1); LYMPHOCYTES ABSOLUTE AUTO 0.93 K/mm3 (0.84-5.20); LYMPHOCYTES PERCENT AUTO 16 % (21-46); MONOCYTES ABSOLUTE AUTO 0.52 K/mm3 (0.16-1.47); MONOCYTES PERCENT AUTO 9 % (4-13); Mean Corpuscular HGB Conc 34.3 g/dL (31.5-36.5); Mean Corpuscular Volume 96 fL (80-100); NEUTROPHILS ABSOLUTE AUTO 4.08 K/mm3 (1.96-9.15); NEUTROPHILS PERCENT AUTO 70 % (41-73); NRBC ABSOLUTE 0.00 K/mm3 (0.00-0.02); NRBC Auto 0.0 /100 WBC (0.0-0.2); Platelet Count 205 K/mm3 (150-400); RDW Coefficient Variation 12.8 % (11.7-14.2); RDW Standard Deviation 45.3 fL (35.1-46.3)
[2025-04-19 07:19] VITALS: BP 107/60
[2025-04-19 07:26] LABS: Magnesium, Blood 1.8 mg/dL (1.6-2.4)
[2025-04-19 07:43] LABS: Alanine Aminotransfer (ALT/SGP 17.0 U/L (12-78); Albumin, Blood 2.8 g/dL (3.4-5.0); Albumin/Globulin Ratio 0.7 (0.8-1.8); Anion Gap 4.0 mmol/L (3-11); Aspartate Aminotrans (AST/SGOT 13.0 U/L (12-37); Bilirubin, Total 0.4 mg/dL (0.1-1.0); Blood Urea Nitrogen 5.0 mg/dL (8-24); CO2, Blood 29.0 mmol/L (21-32); Calcium, Blood 8.2 mg/dL (8.5-10.1); Chloride, Blood 104.0 mmol/L (98-108); Creatinine, Blood 0.67 mg/dL (0.40-1.00); Globulin, Blood 3.9 g/dL (2.2-4.0); Glucose, Blood 93.0 mg/dL (70-99); Potassium, Blood 3.7 mmol/L (3.5-5.5); Sodium, Blood 133.0 mmol/L (136-145); Total Protein, Blood 6.7 g/dL (6.4-8.2)
[2025-04-19] MEDS ORDERED: CefTRIAXone Sodium 1,000 MG in NS 100 ML IV SCH (12:00)
[2025-04-19 15:34] VITALS: BP 140/68
--- NOTE | 2025-04-19 17:19 | NUR ---
SHIFT SUMMARY NO ACUTE CHANGES. PT A/Ox3 WITH SOME NONSENSICAL CONVERSATION AT TIMES. DOES NOT USE CALL LIGHT APPROPRIATELY. ABLE TO MAKE NEEDS KNOWN. PUREWICK IN PLACE - DEVICE CHANGED TODAY PER PROTOCOL. XR OF LEFT KNEE COMPLETED PER PHYSICAL THERAPY RECOMMENDATION. SNF RECOMMENDED. TREATED FOR PAIN PER EMAR. CALM AND COOPERATIVE WITH CARE T/O DAY. PT CURRENTLY RESTING IN HOSPITAL BED WITH BED IN LOWEST POSITION, CALL LIGHT WTIHIN REACH, AND BED ALARM ON.
[2025-04-19 19:24] VITALS: BP 137/84
--- NOTE | 2025-04-20 00:33 | NUR ---
NURSES NOTE ASSUMING CARE FOR THIS PATIENT AT THIS TIME. REPORT HAS BEEN GIVEN. PATIENT APPEARS TO BE SLEEPING COMFORTABLY. BREATHS ARE EVEN AND UNLABORED. BED ALARM IS SET. CALL LIGHT IS WITHIN REACH. SAFETY PRECAUTIONS ARE BEING MAINTAINED.
--- NOTE | 2025-04-20 03:24 | NUR ---
SHIFT SUMMARY PATIENT HAS BEEN SLEEPING INTERMITTANTLY BETWEEN NURSING CARE. VSS. MEDICATED X2 ON THIS SHIFT FOR PAIN WITH PO TRAMADOL. PATIENT IS ORIENTED X3. SHE HAS HER CALL LIGHT WITHIN REACH AND HER BED ALARM IS SET. SAFETY PRECAUTIONS ARE BEING MAINTAINED.
[2025-04-20 03:38] VITALS: BP 134/69
[2025-04-20 07:15] VITALS: BP 139/88
[2025-04-20 07:21] LABS: BASOPHILS ABSOLUTE AUTO 0.03 K/mm3 (0.00-0.23); BASOPHILS PERCENT AUTO 1 % (0-2); EOSINOPHILS ABSOLUTE AUTO 0.40 K/mm3 (0.00-0.68); EOSINOPHILS PERCENT AUTO 10 % (0-6); Hematocrit 33.0 % (33.0-51.0); Hemoglobin 11.3 g/dL (11.5-16.0); IMMATURE GRAN ABSOLUTE AUTO 0.02 K/mm3 (0.00-0.10); IMMATURE GRAN PERCENT AUTO 1 % (0-1); LYMPHOCYTES ABSOLUTE AUTO 1.16 K/mm3 (0.84-5.20); LYMPHOCYTES PERCENT AUTO 30 % (21-46); MONOCYTES ABSOLUTE AUTO 0.41 K/mm3 (0.16-1.47); MONOCYTES PERCENT AUTO 11 % (4-13); Mean Corpuscular HGB Conc 34.2 g/dL (31.5-36.5); Mean Corpuscular Volume 95 fL (80-100); NEUTROPHILS ABSOLUTE AUTO 1.85 K/mm3 (1.96-9.15); NEUTROPHILS PERCENT AUTO 48 % (41-73); NRBC ABSOLUTE 0.00 K/mm3 (0.00-0.02); NRBC Auto 0.0 /100 WBC (0.0-0.2); Platelet Count 205 K/mm3 (150-400); RDW Coefficient Variation 12.6 % (11.7-14.2); RDW Standard Deviation 43.8 fL (35.1-46.3)
[2025-04-20 07:38] LABS: Alanine Aminotransfer (ALT/SGP 20.0 U/L (12-78); Albumin, Blood 2.9 g/dL (3.4-5.0); Albumin/Globulin Ratio 0.7 (0.8-1.8); Anion Gap 8.0 mmol/L (3-11); Aspartate Aminotrans (AST/SGOT 18.0 U/L (12-37); Bilirubin, Total 0.3 mg/dL (0.1-1.0); Blood Urea Nitrogen 4.0 mg/dL (8-24); CO2, Blood 28.0 mmol/L (21-32); Calcium, Blood 8.5 mg/dL (8.5-10.1); Chloride, Blood 103.0 mmol/L (98-108); Creatinine, Blood 0.57 mg/dL (0.40-1.00); Globulin, Blood 4.1 g/dL (2.2-4.0); Glucose, Blood 100.0 mg/dL (70-99); Potassium, Blood 3.5 mmol/L (3.5-5.5); Sodium, Blood 135.0 mmol/L (136-145); Total Protein, Blood 7.0 g/dL (6.4-8.2)
--- NOTE | 2025-04-20 15:27 | NUR ---
ROUNDED ON PT THIS SHIFT SHE IS CURRENTLY LAYING IN BED. DISCUSSED WITH BSRN.
[2025-04-20 15:49] VITALS: BP 151/85
[2025-04-20] MEDS ORDERED: SULTRIDS PO (16:02)
--- NOTE | 2025-04-20 16:35 | NUR ---
SHIFT SUMMARY/DISCHARGE PT AOX4, COOPERATIVE, ABLE TO MAKE NEEDS KNOWN. PT IS 2 PERSON ASSIST TO WHEELCHAIR FOR TRANSFERRING UTILIZING GAIT BELT AND FWW. TOLERATED MEDICATION. PT DC'D BACK TO [facility]. THIS RN WENT OVER DC PAPERWORK WITH PT. BELONGINGS WENT WITH PT.
== END 2025-04-20 16:20 | disposition home health service (06) | DRG 871 ==
LOC: ER 13:33 → PCU 16:11 → MEDS 04-18 18:26
PROVIDERS: Emergency Medicine; ADMIT Hospitalist
DX: A41.9 Sepsis, unspecified organism (principal); G93.41 Metabolic encephalopathy; E87.20 Acidosis, unspecified; N39.0 Urinary tract infection, site not specified; R65.20 Severe sepsis without septic shock; E87.6 Hypokalemia; F31.9 Bipolar disorder, unspecified; K21.9 Gastro-esophageal reflux disease without esophagitis; I10 Essential (primary) hypertension; G47.00 Insomnia, unspecified; Z86.73 Personal history of transient ischemic attack (TIA), and cerebral infarction without residual deficits; Z66 Do not resuscitate; Z88.8 Allergy status to other drugs, medicaments and biological substances; Z79.899 Other long term (current) drug therapy; S09.90XA Unspecified injury of head, initial encounter; W18.30XA Fall on same level, unspecified, initial encounter; E04.2 Nontoxic multinodular goiter
CPT/HCPCS: 36415; 51701; 70450; 72125; 73560-LT; 80048; 80053; 81001; 83605; 83735; 85025; 87040; 87077; 87086; 87186; 93005; 93010; 96365; 97110; 97161; 97165; 97530; 97535; 99285-25; A9270; C1751; J0696; J1650; J2185; J7050; J7120

== ENCOUNTER 2025-04-22 09:35 | Emergency (ER) | payer OTHER ==
[~2025-04-22] VITALS: Ht 170.2 cm; Wt 95.7 kg
[~2025-04-22 09:35] MED LIST changes: +Ativan1 MG PO; +CALCIUM CARBON200 M1 PO; +DIVALPROEX SOD250 M2 PO; +FUROSEMIDE40 MG PO; +K-Dur10 MEQ PO; +SULTRIDS PO
[2025-04-22] MEDS ORDERED: GUAI600T33 PO (10:27)
[2025-04-22 10:28] LABS: BASOPHILS ABSOLUTE AUTO 0.02 K/mm3 (0.00-0.23); BASOPHILS PERCENT AUTO 0 % (0-2); EOSINOPHILS ABSOLUTE AUTO 0.14 K/mm3 (0.00-0.68); EOSINOPHILS PERCENT AUTO 3 % (0-6); Hematocrit 33.1 % (33.0-51.0); Hemoglobin 11.3 g/dL (11.5-16.0); IMMATURE GRAN ABSOLUTE AUTO 0.02 K/mm3 (0.00-0.10); IMMATURE GRAN PERCENT AUTO 0 % (0-1); LYMPHOCYTES ABSOLUTE AUTO 0.94 K/mm3 (0.84-5.20); LYMPHOCYTES PERCENT AUTO 18 % (21-46); MONOCYTES ABSOLUTE AUTO 0.38 K/mm3 (0.16-1.47); MONOCYTES PERCENT AUTO 7 % (4-13); Mean Corpuscular HGB Conc 34.1 g/dL (31.5-36.5); Mean Corpuscular Volume 94 fL (80-100); NEUTROPHILS ABSOLUTE AUTO 3.61 K/mm3 (1.96-9.15); NEUTROPHILS PERCENT AUTO 71 % (41-73); NRBC ABSOLUTE 0.00 K/mm3 (0.00-0.02); NRBC Auto 0.0 /100 WBC (0.0-0.2); Platelet Count 289 K/mm3 (150-400); RDW Coefficient Variation 12.5 % (11.7-14.2); RDW Standard Deviation 42.9 fL (35.1-46.3)
[2025-04-22] MEDS ORDERED: Flonase 0.05% N16 GM (10:28)
[2025-04-22] MEDS ORDERED: LIDO700A20 TOP (10:29)
[2025-04-22] MEDS ORDERED: Hair, Skin & N1 EACH PO (10:30)
[2025-04-22 10:58] LABS: Alanine Aminotransfer (ALT/SGP 26.0 U/L (12-78); Albumin, Blood 3.2 g/dL (3.4-5.0); Albumin/Globulin Ratio 0.7 (0.8-1.8); Anion Gap 8.0 mmol/L (3-11); Aspartate Aminotrans (AST/SGOT 17.0 U/L (12-37); Bilirubin, Total 0.4 mg/dL (0.1-1.0); Blood Urea Nitrogen 6.0 mg/dL (8-24); CO2, Blood 25.0 mmol/L (21-32); Calcium, Blood 8.7 mg/dL (8.5-10.1); Chloride, Blood 105.0 mmol/L (98-108); Creatinine, Blood 0.43 mg/dL (0.40-1.00); Globulin, Blood 4.3 g/dL (2.2-4.0); Glucose, Blood 111.0 mg/dL (70-99); Potassium, Blood 3.3 mmol/L (3.5-5.5); Sodium, Blood 135.0 mmol/L (136-145); Total Protein, Blood 7.5 g/dL (6.4-8.2)
[2025-04-22] MEDS ORDERED: CEFP200 PO (11:25)
[2025-04-22 12:00] VITALS: BP 139/76
== END 2025-04-22 12:30 | disposition home or self-care (01) ==
LOC: ER 09:35
PROVIDERS: Emergency Medicine
DX: N39.0 Urinary tract infection, site not specified (principal); B96.1 Klebsiella pneumoniae [K. pneumoniae] as the cause of diseases classified elsewhere; Z87.891 Personal history of nicotine dependence; K21.9 Gastro-esophageal reflux disease without esophagitis; I10 Essential (primary) hypertension; G47.30 Sleep apnea, unspecified; Z79.899 Other long term (current) drug therapy; Z88.6 Allergy status to analgesic agent; Z88.8 Allergy status to other drugs, medicaments and biological substances
CPT/HCPCS: 80053; 83605; 85025; 99285

== ENCOUNTER 2025-07-22 15:27 | Emergency (ER) | payer OTHER ==
[~2025-07-22] VITALS: Ht 170.2 cm; Wt 98.9 kg
[~2025-07-22 15:27] MED LIST changes: +CEFP200 PO; +Flonase 0.05% N16 GM; +Hair, Skin & N1 EACH PO; +LIDO700A20 TOP
[2025-07-22 15:55] LABS: BASOPHILS ABSOLUTE AUTO 0.03 K/mm3 (0.00-0.23); BASOPHILS PERCENT AUTO 0 % (0-2); EOSINOPHILS ABSOLUTE AUTO 0.48 K/mm3 (0.00-0.68); EOSINOPHILS PERCENT AUTO 4 % (0-6); Hematocrit 31.7 % (33.0-51.0); Hemoglobin 11.0 g/dL (11.5-16.0); IMMATURE GRAN ABSOLUTE AUTO 0.05 K/mm3 (0.00-0.10); IMMATURE GRAN PERCENT AUTO 1 % (0-1); LYMPHOCYTES ABSOLUTE AUTO 1.33 K/mm3 (0.84-5.20); LYMPHOCYTES PERCENT AUTO 12 % (21-46); MONOCYTES ABSOLUTE AUTO 0.59 K/mm3 (0.16-1.47); MONOCYTES PERCENT AUTO 5 % (4-13); Mean Corpuscular HGB Conc 34.7 g/dL (31.5-36.5); Mean Corpuscular Volume 94 fL (80-100); NEUTROPHILS ABSOLUTE AUTO 8.60 K/mm3 (1.96-9.15); NEUTROPHILS PERCENT AUTO 78 % (41-73); NRBC ABSOLUTE 0.00 K/mm3 (0.00-0.02); NRBC Auto 0.0 /100 WBC (0.0-0.2); Platelet Count 251 K/mm3 (150-400); RDW Coefficient Variation 12.9 % (11.7-14.2); RDW Standard Deviation 44.7 fL (35.1-46.3)
[2025-07-22 16:19] LABS: Anion Gap 8.0 mmol/L (3-11); Blood Urea Nitrogen 8.0 mg/dL (8-24); CO2, Blood 26.0 mmol/L (21-32); Calcium, Blood 8.7 mg/dL (8.5-10.1); Chloride, Blood 99.0 mmol/L (98-108); Creatinine, Blood 0.61 mg/dL (0.40-1.00); Glucose, Blood 116.0 mg/dL (70-99); Magnesium, Blood 1.9 mg/dL (1.6-2.4); Potassium, Blood 3.4 mmol/L (3.5-5.5); Sodium, Blood 130.0 mmol/L (136-145)
[2025-07-22] MEDS ORDERED: Seroquel Xr50 MG PO (16:54)
[2025-07-22] MEDS ORDERED: NITR100CA PO (16:57)
[2025-07-22] MEDS ORDERED: ACET500 PO (18:48)
[2025-07-22] MEDS ORDERED: Ondansetron HCl 2 MG / ML 2ML Vial IV ONE (18:50)
[2025-07-22] MEDS ORDERED: CEFP200 PO (19:03)
[2025-07-22 19:15] LABS: Source, Urine Clean Catch
[2025-07-22 19:18] LABS: Bilirubin, Urine Neg (Neg); Color, Urine Yellow (P-Yellow); Glucose Qualitative, Urine Neg (Neg); Ketones, Urine 1+ (Neg); Leukocyte Esterase, Urine 2+ (Neg); Protein, Urine 1+ (Neg); Specific Gravity, Urine 1.010 (1.003-1.022); Urobilinogen, Urine NORM (Normal)
[2025-07-22 19:19] VITALS: BP 150/76
== END 2025-07-22 19:30 | disposition home or self-care (01) ==
LOC: ER 15:27
PROVIDERS: Emergency Medicine
DX: R07.89 Other chest pain (principal); N39.0 Urinary tract infection, site not specified; J44.9 Chronic obstructive pulmonary disease, unspecified; I10 Essential (primary) hypertension; G47.30 Sleep apnea, unspecified; K21.9 Gastro-esophageal reflux disease without esophagitis; Z87.891 Personal history of nicotine dependence; Z88.8 Allergy status to other drugs, medicaments and biological substances; Z88.2 Allergy status to sulfonamides; Z88.1 Allergy status to other antibiotic agents; Z79.899 Other long term (current) drug therapy
CPT/HCPCS: 51701; 71045; 80048; 81001; 83735; 83880; 84484; 85025; 87086; 93005; 93010; 96374-59; 99285-25; A9270; J2405

== ENCOUNTER → 2025-08-28 | Outpatient (CLI) | payer OTHER ==
[~2025-08-28] MED LIST changes: +NITR100CA PO
[2025-08-28 14:16] LABS: Source, Urine Urostomy Bag
[2025-08-28 15:04] LABS: Bilirubin, Urine Neg (Neg); Color, Urine Yellow (P-Yellow); Glucose Qualitative, Urine Neg (Neg); Ketones, Urine Neg (Neg); Leukocyte Esterase, Urine 3+ (Neg); Protein, Urine 1+ (Neg); Specific Gravity, Urine 1.010 (1.003-1.022); Urobilinogen, Urine NORM (Normal)
[2025-08-28 15:15] LABS: White Blood Cells, Urine TNTC /hpf (0-5)
== END ==
LOC: LAB SHORT 14:15 → LAB 14:15
DX: N39.0 Urinary tract infection, site not specified (principal)
CPT/HCPCS: 81001; 87077; 87086; 87186

== ENCOUNTER 2025-10-08 11:16 | Emergency (ER) | payer OTHER ==
[~2025-10-08] VITALS: Ht 162.6 cm; Wt 81.7 kg
[2025-10-08 12:44] LABS: BASOPHILS ABSOLUTE AUTO 0.03 K/mm3 (0.00-0.23); BASOPHILS PERCENT AUTO 0 % (0-2); EOSINOPHILS ABSOLUTE AUTO 0.27 K/mm3 (0.00-0.68); EOSINOPHILS PERCENT AUTO 4 % (0-6); Hematocrit 35.8 % (33.0-51.0); Hemoglobin 11.8 g/dL (11.5-16.0); IMMATURE GRAN ABSOLUTE AUTO 0.02 K/mm3 (0.00-0.10); IMMATURE GRAN PERCENT AUTO 0 % (0-1); LYMPHOCYTES ABSOLUTE AUTO 1.58 K/mm3 (0.84-5.20); LYMPHOCYTES PERCENT AUTO 22 % (21-46); MONOCYTES ABSOLUTE AUTO 0.50 K/mm3 (0.16-1.47); MONOCYTES PERCENT AUTO 7 % (4-13); Mean Corpuscular HGB Conc 33.0 g/dL (31.5-36.5); Mean Corpuscular Volume 98 fL (80-100); NEUTROPHILS ABSOLUTE AUTO 4.81 K/mm3 (1.96-9.15); NEUTROPHILS PERCENT AUTO 67 % (41-73); NRBC ABSOLUTE 0.00 K/mm3 (0.00-0.02); NRBC Auto 0.0 /100 WBC (0.0-0.2); Platelet Count 249 K/mm3 (150-400); RDW Coefficient Variation 12.8 % (11.7-14.2); RDW Standard Deviation 45.8 fL (35.1-46.3)
[2025-10-08 13:29] LABS: Alanine Aminotransfer (ALT/SGP 19.0 U/L (12-78); Albumin, Blood 3.4 g/dL (3.4-5.0); Albumin/Globulin Ratio 0.7 (0.8-1.8); Anion Gap 9.0 mmol/L (3-11); Aspartate Aminotrans (AST/SGOT 10.0 U/L (12-37); Bilirubin, Total 0.5 mg/dL (0.1-1.0); Blood Urea Nitrogen 6.0 mg/dL (8-24); CO2, Blood 27.0 mmol/L (21-32); Calcium, Blood 8.9 mg/dL (8.5-10.1); Chloride, Blood 100.0 mmol/L (98-108); Creatinine, Blood 0.57 mg/dL (0.40-1.00); Globulin, Blood 5.0 g/dL (2.2-4.0); Glucose, Blood 133.0 mg/dL (70-99); Potassium, Blood 4.0 mmol/L (3.5-5.5); Sodium, Blood 132.0 mmol/L (136-145); Total Protein, Blood 8.4 g/dL (6.4-8.2)
[2025-10-08 13:41] LABS: Source, Urine Clean Catch
[2025-10-08 13:45] LABS: Bilirubin, Urine Neg (Neg); Color, Urine Yellow (P-Yellow); Glucose Qualitative, Urine Neg (Neg); Ketones, Urine Neg (Neg); Leukocyte Esterase, Urine Neg (Neg); Protein, Urine Neg (Neg); Specific Gravity, Urine 1.010 (1.003-1.022); Urobilinogen, Urine NORM (Normal)
[2025-10-08 14:04] LABS: Red Blood Cells, Urine 0-2 /hpf (0-2); White Blood Cells, Urine 0-2 /hpf (0-5)
[2025-10-08] MEDS ORDERED: NS 1,000 ML IV SCH (14:20)
[2025-10-08 15:00] VITALS: BP 130/66
== END 2025-10-08 15:29 | disposition home or self-care (01) ==
LOC: ER 11:16
PROVIDERS: Emergency Medicine
DX: R41.0 Disorientation, unspecified (principal); E86.0 Dehydration; R30.0 Dysuria; R35.0 Frequency of micturition; F03.90 Unspecified dementia, unspecified severity, without behavioral disturbance, psychotic disturbance, mood disturbance, and anxiety; I10 Essential (primary) hypertension; G47.30 Sleep apnea, unspecified; K21.9 Gastro-esophageal reflux disease without esophagitis; Z87.891 Personal history of nicotine dependence; Z88.2 Allergy status to sulfonamides; Z88.1 Allergy status to other antibiotic agents; Z88.8 Allergy status to other drugs, medicaments and biological substances; Z79.899 Other long term (current) drug therapy; Z59.89 Other problems related to housing and economic circumstances
CPT/HCPCS: 80053; 81001; 83605; 85025; 99284; J7030

== ENCOUNTER 2025-10-10 15:55 | Emergency (ER) | payer OTHER ==
[~2025-10-10] VITALS: Ht 162.6 cm; Wt 81.7 kg
[2025-10-10] MEDS ORDERED: NS 1,000 ML IV SCH (16:30)
[2025-10-10 17:19] LABS: BASOPHILS ABSOLUTE AUTO 0.05 K/mm3 (0.00-0.23); BASOPHILS PERCENT AUTO 1 % (0-2); EOSINOPHILS ABSOLUTE AUTO 0.35 K/mm3 (0.00-0.68); EOSINOPHILS PERCENT AUTO 4 % (0-6); Hematocrit 34.7 % (33.0-51.0); Hemoglobin 11.7 g/dL (11.5-16.0); IMMATURE GRAN ABSOLUTE AUTO 0.04 K/mm3 (0.00-0.10); IMMATURE GRAN PERCENT AUTO 1 % (0-1); LYMPHOCYTES ABSOLUTE AUTO 1.24 K/mm3 (0.84-5.20); LYMPHOCYTES PERCENT AUTO 16 % (21-46); MONOCYTES ABSOLUTE AUTO 0.60 K/mm3 (0.16-1.47); MONOCYTES PERCENT AUTO 8 % (4-13); Mean Corpuscular HGB Conc 33.7 g/dL (31.5-36.5); Mean Corpuscular Volume 98 fL (80-100); NEUTROPHILS ABSOLUTE AUTO 5.64 K/mm3 (1.96-9.15); NEUTROPHILS PERCENT AUTO 71 % (41-73); NRBC ABSOLUTE 0.00 K/mm3 (0.00-0.02); NRBC Auto 0.0 /100 WBC (0.0-0.2); Platelet Count 242 K/mm3 (150-400); RDW Coefficient Variation 12.9 % (11.7-14.2); RDW Standard Deviation 46.5 fL (35.1-46.3)
[2025-10-10 17:30] LABS: Alanine Aminotransfer (ALT/SGP 18.0 U/L (12-78); Albumin, Blood 3.1 g/dL (3.4-5.0); Albumin/Globulin Ratio 0.7 (0.8-1.8); Anion Gap 9.0 mmol/L (3-11); Aspartate Aminotrans (AST/SGOT 11.0 U/L (12-37); Bilirubin, Total 0.5 mg/dL (0.1-1.0); Blood Urea Nitrogen 9.0 mg/dL (8-24); CO2, Blood 28.0 mmol/L (21-32); Calcium, Blood 8.7 mg/dL (8.5-10.1); Chloride, Blood 103.0 mmol/L (98-108); Creatinine, Blood 0.58 mg/dL (0.40-1.00); Globulin, Blood 4.5 g/dL (2.2-4.0); Glucose, Blood 109.0 mg/dL (70-99); Potassium, Blood 3.7 mmol/L (3.5-5.5); Sodium, Blood 136.0 mmol/L (136-145); Total Protein, Blood 7.6 g/dL (6.4-8.2)
[2025-10-10 17:48] LABS: Source, Urine Clean Catch
[2025-10-10 17:55] LABS: Bilirubin, Urine Neg (Neg); Color, Urine Yellow (P-Yellow); Glucose Qualitative, Urine Neg (Neg); Ketones, Urine Neg (Neg); Leukocyte Esterase, Urine 1+ (Neg); Protein, Urine Neg (Neg); Specific Gravity, Urine 1.010 (1.003-1.022); Urobilinogen, Urine NORM (Normal)
[2025-10-10] MEDS ORDERED: Seroquel Xr50 MG PO (18:01)
[2025-10-10 18:30] VITALS: BP 147/83
== END 2025-10-10 18:50 | disposition home or self-care (01) ==
LOC: ER 15:55
PROVIDERS: Student in an Organized Health Care Education/Training Program
DX: R74.02 Elevation of levels of lactic acid dehydrogenase [LDH] (principal); F03.90 Unspecified dementia, unspecified severity, without behavioral disturbance, psychotic disturbance, mood disturbance, and anxiety; I10 Essential (primary) hypertension; Z87.891 Personal history of nicotine dependence; Z79.899 Other long term (current) drug therapy
CPT/HCPCS: 36415; 80053; 80164; 81001; 82140; 83605; 84436; 84443; 84481; 85025; 96360; 96361; 99283-25; J7030